=== PATIENT | male | born 2000 | race Asian ===

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

== ENCOUNTER 2020-02-13 16:28 | Inpatient (IN) ==
--- NOTE | 2020-02-13 17:00 | Emergency Department Note ---
Impression & Plan Suicidal ideation, Depression ED Provider Note NAME: LULU TRNA AGE: 19 SEX: M : 2000 ARRIVES VIA: Walk-In INFORMANT: Patient, ED PROVIDER(S): Farhat Segovia MD Chief Complaint: Depression, suicidal ideation HPI: Patient does present with the above complaints. Patient states that he was scheduled to go back to [place] today on a flight from [place] [employer]. The patient lacked some sort of documentation in order to do so. The patient did return here as the patient is a current [employer] student. Patient states he has had decreased sleep and appetite. The patient does state that he has suicidal ideation a prior history of attempts including jumping off a roof, cutting himself, and overdosing. Patient denies taking anything today. Patient denies any fevers chills chest pains or shortness of breath. The patient did have a negative coronavirus test completed today. The patient denies any access to guns or firearms. Patient denies any HI or AVH. ROS: See HPI for pertinent positives and negatives. A total of 10 systems were reviewed and otherwise negative. Past medical history: See below Surgical history: See below Social history: See below Physical Exam: GENERAL: Wearing a mask. Scratching his head. EYE EXAM: Normal conjunctiva. PERRL, no anisocoria and EOM's grossly intact w/o pain. NECK: Supple, no nuchal rigidity, no adenopathy, non-tender. No signs of meningismus. LUNGS: Clear to auscultation. Normal chest wall mechanics. HEART: NSR, no MRG. ABDOMEN: Abdomen soft, non-tender, normo-active bowel sounds, no masses, no rebound or guarding. BACK: No CVA TTP. SKIN: No rashes and no bruising. UPPER EXTREMITIES: Upper extremities are grossly normal. LOWER EXTREMITIES: Grossly normal, no edema. NEURO EXAM: A&O x3, cranial nerves II-XII grossly intact, normal speech, moves all 4 extremities on command w/o issue. Psych: Speaks in a low voice, averts gaze, positive SI, negative HI or AVH. Differential diagnoses: Mood disorder, infection, hypoglycemia, electrolyte a bnormalities, cardiac sources, intracerebral event, toxicologic, trauma, neurologic, as well as other pathologies. Course: Patient was seen and evaluated the bedside. Full history physical exam was performed. MDM: Patient was seen due to concern for suicidal ideation. I did speak with the patient case manager. Patient's blood work is unremarkable and was medically cleared. The patient was reviewed and accepted. Covid test was ordered and was negative. The patient was subsequently mated to inpatient treatment at [facility]. Past Med/Surg History Medical History (Updated 02/13/20 @ 20:58 by Farhat Segovia MD) Depression Social History Smoking Status: Never smoker Preferred Language: Welsh Feels Safe at Home: Yes Allergies Allergies Allergy/AdvReac Type Severity Reaction Status Date / Time No Known Allergies Allergy Verified 02/13/20 17:13 Home Meds Home Medications Medication Instructions Recorded Confirmed No Known Home Medications 02/13/20 02/13/20 Results & Data (ED) Vital Signs Vital Signs - 24 hr 02/13/20 16:44 02/13/20 20:56 Temperature 36.7 C Temperature Source Oral Pulse Rate 89 Pulse Rate [Finger] 85 Pulse Rhythm Regular Pulse Rhythm [Finger] Regular Pulse Strength Normal Respiratory Rate 18 18 Respiratory Effort / Characteristics Non-Labored Spontaneous Respiratory Depth Normal Normal Respiratory Pattern Regular Blood Pressure 140/104 H Blood Pressure [Right Arm] 121/84 Blood Pressure Mean 116 Blood Pressure Mean [Right Arm] 96 Blood Pressure Position Sitting Pulse Oximetry 98 99 Oxygen Delivery Method Room Air Sepsis Recent Fever Within 48 Hours No Sepsis New/Unexplained Change in Mental Status N/A Sepsis Action Taken by Nursing No Action Required Home Medications Current Medication List: was personally reviewed by me Laboratory Data Attestation: I reviewed the patient's lab results. Result diagrams: 02/13/20 17:14 02/13/20 17:14 Lab Results 02/13/20 02/13/20 02/13/20 Range/Units 16:47 16:47 17:14 WBC 7.54 (4.8-10.8) K/uL RBC 5.61 (4.7-6.1) M/uL Hgb 16.1 (14.0-18.0) g/dL Hct 46.7 (42-52) % MCV 83.2 (80-100) fL MCH 28.7 (25-34) pg MCHC 34.5 (32-36) g/dL RDW Std Deviation 37.3 (36.4-46.3) fL RDW Coeff of Remedios 12.5 (11.5-14.5) % Plt Count 263 (130-400) K/uL MPV 10.1 (7.4-10.4) fL Immature Gran % (Auto) 0.3 % Neut % (Auto) 55.5 % Lymph % (Auto) 29.4 % [place] % (Auto) 10.2 % Eos % (Auto) 4.2 % Baso % (Auto) 0.4 % Neut # (Auto) 4.18 (1.4-6.5) K/uL Lymph # (Auto) 2.22 (1.2-3.4) K/uL [place] # (Auto) 0.77 H (0.11-0.59) K/uL Eos # (Auto) 0.32 (0-0.5) K/uL Baso # (Auto) 0.03 (0-0.2) K/uL Immature Gran # (Auto) 0.02 (0.00-0.02) K/uL Sodium (136-145) mmol/L Potassium (3.5-5.1) mmol/L Chloride (98-107) mmol/L Carbon Dioxide (21-32) mmol/L Anion Gap (3-11) BUN (7-18) mg/dl Creatinine (0.6-1.4) mg/dl Est Cr Clr Drug Dosing ml/min Est GFR ( Amer) Est GFR (Non-Af Amer) BUN/Creatinine Ratio (10-20) Glucose (70-99) mg/dl Calcium (8.5-10.1) mg/dl Total Bilirubin (0.2-1) mg/dl AST (15-37) U/L ALT (12-78) U/L Alkaline Phosphatase (45-117) U/L Total Protein (6.4-8.2) gm/dl Albumin (3.4-5.0) gm/dl Globulin (2.5-4.0) gm/dl Albumin/Globulin Ratio (0.9-2) TSH (0.300-4.500) uIu/ml Urine Color Dark Yellow Urine Appearance Clear (Clear) Urine pH 5.5 (4.5-7.5) Ur Specific [place] 1.037 H (1.000-1.030) Urine Protein Trace H (Negative) Urine Glucose (UA) Negative (Negative) Urine Ketones Negative (Negative) Urine Blood Negative (Negative) Urine Nitrite Negative (Negative) Urine Bilirubin Negative (Negative) Urine Urobilinogen Negative (Negative) Ur Leukocyte Esterase Negative (Negative) Urine WBC (Auto) 1-5 (0-5) /hpf Urine RBC (Auto) 0-4 (0-4) /hpf U Hyaline Cast (Auto) 1-5 (0-5) /lpf U Epithel Cells (Auto) 5-10 H (0-5) /lpf Urine Bacteria (Auto) Negative (Negative) Salicylates (2.8-20) mg/dl Urine Opiates Screen Neg (Neg) Ur Methadone, Qual Neg (Neg) Acetaminophen (10-30) ug/ml Urine Barbiturates Neg (Neg) Ur Phencyclidine (PCP) Neg (Neg) U Amphetamin/Meth Scrn Neg (Neg) MDMA (Ecstasy) Screen Neg (Neg) U Benzodiazepines Scrn Neg (Neg) Ur Cocaine Metabolite Neg (Neg) U Marijuana (THC) Screen Neg (Neg) Ethyl Alcohol mg/dL (0-3) mg/dl COVID-19 Eval Order SARS-CoV-2, RNA, NAAT (NEGATIVE) 02/13/20 02/13/20 02/13/20 Range/Units 17:14 17:14 17:14 WBC (4.8-10.8) K/uL RBC (4.7-6.1) M/uL Hgb (14.0-18.0) g/dL Hct (42-52) % MCV (80-100) fL MCH (25-34) pg MCHC (32-36) g/dL RDW Std Deviation (36.4-46.3) fL RDW Coeff of Remedios (11.5-14.5) % Plt Count (130-400) K/uL MPV (7.4-10.4) fL Immature Gran % (Auto) % Neut % (Auto) % Lymph % (Auto) % [place] % (Auto) % Eos % (Auto) % Baso % (Auto) % Neut # (Auto) (1.4-6.5) K/uL Lymph # (Auto) (1.2-3.4) K/uL [place] # (Auto) (0.11-0.59) K/uL Eos # (Auto) (0-0.5) K/uL Baso # (Auto) (0-0.2) K/uL Immature Gran # (Auto) (0.00-0.02) K/uL Sodium 140 (136-145) mmol/L Potassium 3.7 (3.5-5.1) mmol/L Chloride 107 (98-107) mmol/L Carbon Dioxide 27 (21-32) mmol/L Anion Gap 6.0 (3-11) BUN 18 (7-18) mg/dl Creatinine 1.11 (0.6-1.4) mg/dl Est Cr Clr Drug Dosing 101.8 ml/min Est GFR ( Amer) 109.4 Est GFR (Non-Af Amer) 94.4 BUN/Creatinine Ratio 15.9 (10-20) Glucose 86 (70-99) mg/dl Calcium 9.1 (8.5-10.1) mg/dl Total Bilirubin 0.9 (0.2-1) mg/dl AST 15 (15-37) U/L ALT 24 (12-78) U/L Alkaline Phosphatase 81 (45-117) U/L Total Protein 8.0 (6.4-8.2) gm/dl Albumin 4.4 (3.4-5.0) gm/dl Globulin 3.6 (2.5-4.0) gm/dl Albumin/Globulin Ratio 1.2 (0.9-2) TSH 3.770 (0.300-4.500) uIu/ml Urine Color Urine Appearance (Clear) Urine pH (4.5-7.5) Ur Specific [place] (1.000-1.030) Urine Protein (Negative) Urine Glucose (UA) (Negative) Urine Ketones (Negative) Urine Blood (Negative) Urine Nitrite (Negative) Urine Bilirubin (Negative) Urine Urobilinogen (Negative) Ur Leukocyte Esterase (Negative) Urine WBC (Auto) (0-5) /hpf Urine RBC (Auto) (0-4) /hpf U Hyaline Cast (Auto) (0-5) /lpf U Epithel Cells (Auto) (0-5) /lpf Urine Bacteria (Auto) (Negative) Salicylates < 1.7 L (2.8-20) mg/dl Urine Opiates Screen (Neg) Ur Methadone, Qual (Neg) Acetaminophen < 2 L (10-30) ug/ml Urine Barbiturates (Neg) Ur Phencyclidine (PCP) (Neg) U Amphetamin/Meth Scrn (Neg) MDMA (Ecstasy) Screen (Neg) U Benzodiazepines Scrn (Neg) Ur Cocaine Metabolite (Neg) U Marijuana (THC) Screen (Neg) Ethyl Alcohol mg/dL < 3.0 (0-3) mg/dl COVID-19 Eval Order SARS-CoV-2, RNA, NAAT (NEGATIVE) 02/13/20 02/13/20 Range/Units 19:20 19:20 WBC (4.8-10.8) K/uL RBC (4.7-6.1) M/uL Hgb (14.0-18.0) g/dL Hct (42-52) % MCV (80-100) fL MCH (25-34) pg MCHC (32-36) g/dL RDW Std Deviation (36.4-46.3) fL RDW Coeff of Remedios (11.5-14.5) % Plt Count (130-400) K/uL MPV (7.4-10.4) fL Immature Gran % (Auto) % Neut % (Auto) % Lymph % (Auto) % [place] % (Auto) % Eos % (Auto) % Baso % (Auto) % Neut # (Auto) (1.4-6.5) K/uL Lymph # (Auto) (1.2-3.4) K/uL [place] # (Auto) (0.11-0.59) K/uL Eos # (Auto) (0-0.5) K/uL Baso # (Auto) (0-0.2) K/uL Immature Gran # (Auto) (0.00-0.02) K/uL Sodium (136-145) mmol/L Potassium (3.5-5.1) mmol/L Chloride (98-107) mmol/L Carbon Dioxide (21-32) mmol/L Anion Gap (3-11) BUN (7-18) mg/dl Creatinine (0.6-1.4) mg/dl Est Cr Clr Drug Dosing ml/min Est GFR ( Amer) Est GFR (Non-Af Amer) BUN/Creatinine Ratio (10-20) Glucose (70-99) mg/dl Calcium (8.5-10.1) mg/dl Total Bilirubin (0.2-1) mg/dl AST (15-37) U/L ALT (12-78) U/L Alkaline Phosphatase (45-117) U/L Total Protein (6.4-8.2) gm/dl Albumin (3.4-5.0) gm/dl Globulin (2.5-4.0) gm/dl Albumin/Globulin Ratio (0.9-2) TSH (0.300-4.500) uIu/ml Urine Color Urine Appearance (Clear) Urine pH (4.5-7.5) Ur Specific [place] (1.000-1.030) Urine Protein (Negative) Urine Glucose (UA) (Negative) Urine Ketones (Negative) Urine Blood (Negative) Urine Nitrite (Negative) Urine Bilirubin (Negative) Urine Urobilinogen (Negative) Ur Leukocyte Esterase (Negative) Urine WBC (Auto) (0-5) /hpf Urine RBC (Auto) (0-4) /hpf U Hyaline Cast (Auto) (0-5) /lpf U Epithel Cells (Auto) (0-5) /lpf Urine Bacteria (Auto) (Negative) Salicylates (2.8-20) mg/dl Urine Opiates Screen (Neg) Ur Methadone, Qual (Neg) Acetaminophen (10-30) ug/ml Urine Barbiturates (Neg) Ur Phencyclidine (PCP) (Neg) U Amphetamin/Meth Scrn (Neg) MDMA (Ecstasy) Screen (Neg) U Benzodiazepines Scrn (Neg) Ur Cocaine Metabolite (Neg) U Marijuana (THC) Screen (Neg) Ethyl Alcohol mg/dL (0-3) mg/dl COVID-19 Eval Order Covid19 [facility] SARS-CoV-2, RNA, NAAT NEGATIVE (NEGATIVE) Discharge Plan Visit Data Chief Complaint: Mental Health Evaluation Stated Complaint: MENTAL HEALTH EVAL ED Provider: Farhat Segovia Discharge Problem: Suicidal ideation, Depression Forms Stand Alone Forms: [facility], Suicide Prevention Resources Prescriptions Prescriptions: No Action No Known Home Medications RF: 0 Discharge Problem: Depression Qualifiers: Depression Type: unspecified Qualified Code(s): F32.9 - Major depressive disorder, single episode, unspecified
[2020-02-13 17:04] LABS: Appearance Urine Clear (Clear); Bacteria Urine Automated Negative (Negative); Bilirubin Urine Negative (Negative); Blood Urine Negative (Negative); Color Urine Dark Yellow; Glucose Urine UA Negative (Negative); Ketones Urine Negative (Negative); Leukocyte Esterase Urine Negative (Negative); Nitrite Urine Negative (Negative); Protein Urine Trace (Negative); RBC Urine Automated 0-4 /hpf (0-4); Specific Gravity Urine 1.037 (1.000-1.030); Urobilinogen Urine Negative (Negative); pH Urine 5.5 (4.5-7.5)
[2020-02-13 17:24] LABS: Amphetamines+Metham, Urine Neg (Neg); Barbiturates, Urine Neg (Neg); Benzodiazepine, Urine Neg (Neg); Cocaine, Urine Neg (Neg); MDMA (Ecstacy), Urine Neg (Neg); Methadone, Urine Neg (Neg); Opiate, Urine Neg (Neg); Phencyclidine, Urine Neg (Neg)
[2020-02-13 17:26] LABS: Basophils # (auto) 0.03 K/uL (0-0.2); Basophils % (auto) 0.4 %; Eosinophils # (auto) 0.32 K/uL (0-0.5); Eosinophils % (auto) 4.2 %; Hematocrit (blood only) 46.7 % (42-52); Hemoglobin 16.1 g/dL (14.0-18.0); Immature Granulocytes # (auto) 0.02 K/uL (0.00-0.02); Immature Granulocytes % (auto) 0.3 %; Lymphocytes # (auto) 2.22 K/uL (1.2-3.4); Lymphocytes % (auto) 29.4 %; Mean Corpuscular Hemoglobin 28.7 pg (25-34); Mean Corpuscular Hgb Conc 34.5 g/dL (32-36); Mean Corpuscular Volume 83.2 fL (80-100); Mean Platelet Volume 10.1 fL (7.4-10.4); Monocytes # (auto) 0.77 K/uL (0.11-0.59); Monocytes % (auto) 10.2 %; Neutrophils # (auto) 4.18 K/uL (1.4-6.5); Neutrophils % (auto) 55.5 %; Platelet Count 263 K/uL (130-400); RDW Coefficient of Variation 12.5 % (11.5-14.5); RDW Standard Deviation 37.3 fL (36.4-46.3); Red Blood Count 5.61 M/uL (4.7-6.1); White Blood Count 7.54 K/uL (4.8-10.8)
[2020-02-13 17:42] LABS: Albumin Level 4.4 gm/dl (3.4-5.0); BUN Creatinine Ratio 15.9 (10-20); Calcium 9.1 mg/dl (8.5-10.1); Creatinine Clr Calc Pharmacy 101.8 ml/min; Est GFR (African American) 109.4; Est GFR (Non-African American) 94.4; Potassium 3.7 mmol/L (3.5-5.1)
[2020-02-13 17:52] LABS: Albumin Globulin Ratio 1.2 (0.9-2); Bilirubin,Total 0.9 mg/dl (0.2-1); Globulin 3.6 gm/dl (2.5-4.0); Thyroid Stimulating Hormone 3.77 uIu/ml (0.300-4.500)
[2020-02-13 17:57] LABS: Acetaminophen < 2 ug/ml (10-30); Salicylate < 1.7 mg/dl (2.8-20)
[2020-02-13] MEDS ORDERED: SODIUM CHLORIDE 0.65% NA SOLN 45 ML (OCEAN) PRN (20:49)
[2020-02-13] MEDS ORDERED: MAGNESIUM HYDROXIDE SUSP 30 ML UDC PO PRN (20:49)
[2020-02-13] MEDS ORDERED: ACETAMINOPHEN 325 MG TAB PO PRN (20:49)
[2020-02-13] MEDS ORDERED: ALUMINUM/MAGNESIUM SUSP 30 ML UDC PO PRN (20:49)
[2020-02-13] MEDS ORDERED: hydrOXYzine HCl 25 MG TAB PO PRN ×2 (20:49)
[2020-02-13] MEDS ORDERED: BISMUTH SUBSALICYLATE LIQD 236 ML PO PRN (20:49)
[2020-02-13 20:57] VITALS: O2SAT 99
[2020-02-13] MEDS ORDERED: INFLUENZA VIRUS QUAD VACCINE 0.5 ML SYR IM ONE (22:24)
[2020-02-13] MEDS ORDERED: INFLUENZA ADMINISTRATION CHARGE ONE (22:24)
[2020-02-14] MEDS: OXYMETAZOLINE INH PRN (07:28)
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
[2020-02-14] MEDS: CITALOPRAM 20 MG TAB PO SCH (11:35)
[2020-02-15] MEDS: CITALOPRAM 20 MG TAB PO SCH (08:34)
[2020-02-15] MEDS: OXYMETAZOLINE INH PRN ×2 (08:34→16:09)
--- NOTE | 2020-02-15 13:22 | Psychiatric Progress Note ---
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 He is angry about the barriers he has encountered, feels that things are unfair, and in that context is hopeless and suicidal. Patient's behavior continues to be consistent with narci ssistic personality disorder, and we will encourage patient to focus on development of healthy and effective coping skills to deal with frustration. Pt agreed to a family meeting with his mother, who lives in [place], which will occur tomorrow morning. Inpatient treatment is medically necessary due to the severity of symptoms and risk for suicide if discharged. (1) Suicidal ideation: 02/13 - Continue inpatient treatment on locked unit, suicide checks for safety, encourage group attendance and participation. -Family meeting w/ parents in [place], and coordination with school/[employer] [facility] [employer] [facility]. -Patient is now stating he cannot go home until the travel restrictions are lifted, which could be months or longer. This does not appear to be based in reality, and he will need coordination with his outpatient supports to clarify his options moving forward. 02/14 - Pt does not report active SI, but after a significant period of hesitancy, the patient states he feels "broken" and continues to feel that "life is overrated" (2) Depression: 02/13 - Resume citalopram 20mg daily, as previously effective and well tolerated. Discussed with him that given multiple episodes of depression and history of multiple suicide attempts, that guidelines are for continuous antidepressant treatment, and that greater consideration should be given in the future prior to stopping his medications once symptoms have remitted. - Reviewed diagnoses and treatment recommendations, including antidepressant medication and therapy. Care coordinated with Dr. Kirby and will also coordinate with therapist at [facility]. If he remains in [place], he will require ongoing outpatient treatment. 02/14 - continue citalopram at 20mg - patient reports nausea today, unsure if related to medication or anxiety. Can continue titration as tolerated and recommend ongoing conversations to encourage medication compliance even after symptoms improve - Pt reports ongoing depressed mood and difficulty processing events leading to admission - prefers at this time to focus more on distraction than on directly discussing stressors - Family meeting with mother scheduled for tomorrow - Will need to reschedule aftercare appointments (3) Narcissistic personality disorder: 02/13 - Outpatient diagnosis, will get therapy records. On exam today, sense of entitlement is noted, as well as lack of empathy. -Difficulty managing frustration, will focus on distress tolerance and healthy coping skills here. 02/14 - Ongoing observations as stated above. Evidence to support this diagnosis today includes: acute frustration related to mother securing another plane ticket, claiming he was frustrated with her for doing this as he now has no intention of returning home. - Hopefully we can discuss this communication concern and ways to assist with low frustration-tolerance during family meeting scheduled with mother for tomorrow. Risk Factors Assessment Male: Yes : No Do You Have Access To A Gun?: No Health Problems: No Mental Health Diagnoses: Yes Substance Use Disorders: No Previous Attempt: Yes Family History of Suicide: No Previous Psychiatric Hospitalization: Yes Hopelessness: Yes Smoker: No Protective Factors Assessment Rastafarian Beliefs: No : No Responsible for Young Children: No Employed: No Stable Relationships: Yes Supportive Family: Yes Good Rapport with Provider: Yes Interval History Identifying Information LULU HE is a 19-year-old M [employer] student from [place] who has a history of depression and was admitted on 02/13/20 20:49 on a 201 voluntary commitment for depression and suicidality. Chief Complaint "Good. Pretty alright." Review of Systems Notes Constitutional: vague report of "physical stuff" when he feels overwhelmed, unable to provide any additional insight Cardiovascular: denied Respiratory: denied Gastrointestinal: reports nausea today Neurological: denied Psychiatric: denies symptoms other than stated above Total of at least 10 systems reviewed, pertinent positives as above and in HPI. Sleep Information Total Hours of Sleep: 7.5 Sleep Comments: pt on q-15 minute checks Meal Information Percent Meal Consumed - Breakfast: 100 Percent Meal Consumed - Lunch: 100 Percent Meal Consumed - Dinner: 100 Subjective Subjective Patient was seen & assessed and interval progress reviewed with nursing and social work. Staff report the patient has been adjusting to the unit, initially more withdrawn. Pt did appear somewhat overwhelmed per reports. Pt was seen today to assess progress since admission. Pt states he is feeling "good. Pretty alright." He was pulled away from activity group to complete interview, where he was engaging with peers in a few games. He becomes noticeably more withdrawn when pulled into a 1:1 conversation. Pt admits that he has been "dealing with a lot of things." He shares that he was not able to return to [place] and that this change in plans was very frustrating for him. He also states that he spoke with his mother today and learned that she had purchased a new plane ticket on his behalf. Pt states that he is very frustrated about this, telling this provider he did not want to discuss it as it causes him to be overwhelmed. This provider did press a bit harder to learn why this was meghannt's reaction. Pt shared that due to him being unable to board his first flight, he had already made up his mind that he was not returning home. He states he now feels like his plans are being changed for him again, and he finds this frustrating. Pt did agree to a family meeting with his mother tomorrow at 10:00. He states that he is too anxious to discuss any topics he plans to bring up. He reports that anxiety causes "physical reactions" to happen, but reports only physical complaint is nausea. He is unsure if this is related to restarting medications or related to anxiety itself. Pt did not endorse active SI, but does state he is feeling "broken" and continues to feel that "life is overrated." Pt is unable to contract for safety outside of the hospital at this time. He states his present goal has been to focus on distraction, though this may also be efforts to avoid dealing with stressors. Physical Exam Psychiatric Orientation: alert, oriented x 3 and + guarded (only superficially cooperative, deflecting most questions asked of him) Apperance: appropriately dressed (neatly dressed in khaki pants and a sweater with collared shirt underneath ), appropriately groomed and appeared stated age Eye Contact: + poor eye contact (very few moments of direct eye contact ) Motor Behavior: + psychomotor agitation (appearing anxious, frequently fidgeting or moving hand through hair) Speech: normal rate/rhythm/volume of speech Affect: + anxious affect Mood: + depressed mood and + anxious mood Thought Process: goal directed thought process Thought Content: + cognitive distortions and + hopelessness Suicidal Thoughts: + reports suicidal thoughts (reports still feeling "life is over-rated") admits he is unable to contract for safety outside of the hospital setting at this time Homicidal Thoughts: denies homicidal thoughts Hallucinations: no auditory hallucinations and no visual hallucinations Cognition: attention grossly intact and language grossly intact Estimated Intelligence: consistent with education level Insight: + poor insight Judgement: + poor judgement Vital Signs (Past 24 Hours) Last Vital Signs Temp 36.6 C 02/15/20 06:46 Pulse 79 02/15/20 06:46 Resp 16 02/15/20 06:46 BP 121/78 02/15/20 06:46 Pulse Ox 99 02/13/20 20:56 Results & Data ([facility]) Current Inpatient Medications Current Inpatient Medications: Current Inpatient Medications Acetaminophen (Acetaminophen 325 Mg Tab) 650 mg PO Q4H PRN PRN Reason: Headache or Minor Fever Stop: 03/14/20 20:48 Al Hydrox/Mg Hydrox/Simethicone (Aluminum/Magnesium Susp 30 Ml Udc) 30 ml PO Q4H PRN PRN Reason: GI Upset Stop: 03/14/20 20:48 Bismuth Subsalicylate (Bismuth Subsalicylate Liqd 236 Ml) 15 ml PO PRN PRN PRN Reason: Loose Stool Stop: 03/14/20 20:48 Citalopram Hydrobromide (Citalopram 20 Mg Tab) 20 mg PO QAM ARELY Stop: 03/15/20 10:59 Last Admin: 02/15/20 08:34 Dose: 20 mg Documented by: Hydroxyzine HCl (Hydroxyzine Hcl 25 Mg Tab) 50 mg PO HSZ PRN PRN Reason: Insomnia Stop: 03/14/20 20:48 Hydroxyzine HCl (Hydroxyzine Hcl 25 Mg Tab) 25 mg PO Q4H PRN PRN Reason: Anxiety Stop: 03/14/20 20:48 Magnesium Hydroxide (Magnesium Hydroxide Susp 30 Ml Udc) 30 ml PO DAILY PRN PRN Reason: Constipation Stop: 03/14/20 20:48 Oxymetazoline: Non- Formulary Patient's Own Med 1 ea INH HS PRN PRN Reason: Allergy Symptoms Stop: 03/15/20 21:59 Last Admin: 02/15/20 08:34 Dose: 1 sprays Documented by: Sodium Chloride (Sodium Chloride 0.65% Na Soln 45 Ml ([place])) 1 - 2 sprays NA PRN PRN PRN Reason: Nasal Dryness/Congestion Stop: 03/14/20 20:48 Last Admin: 02/15/20 10:10 Dose: 1 sprays Documented by: Mental Health & Subst Abuse Tx Psychiatrist [facility]ist[facility] Post Discharge Appointments Primary Care Physician Name Of Family Doctor: Tamiko (1) Depression Depression Type: unspecified Qualified Code(s): F32.9 - Major depressive disorder, single episode, unspecified
[2020-02-16] MEDS: CITALOPRAM 20 MG TAB PO SCH (08:56)
[2020-02-16] MEDS ORDERED: OXYMETAZOLINE 0.05% INH PRN (11:43)
--- NOTE | 2020-02-16 13:23 | Psychiatric Progress Note ---
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 He is angry about the barriers he has encountered, feels that things are unfair, and in that context is hopeless and suicidal. Patient's behavior continues to be consistent with narci ssistic personality disorder, and we will encourage patient to focus on development of healthy and effective coping skills to deal with frustration. Pt agreed to a family meeting with his mother, who lives in [place]. Mother was supportive, but patient continued to display difficulty tolerating frustration. Inpatient treatment is medically necessary due to the severity of symptoms and risk for suicide if discharged. (1) Suicidal ideation: 02/13 - Continue inpatient treatment on locked unit, suicide checks for safety, encourage group attendance and participation. -Family meeting w/ parents in [place], and coordination with school/[employer] [facility] [employer] [facility]. -Patient is now stating he cannot go home until the travel restrictions are lifted, which could be months or longer. This does not appear to be based in reality, and he will need coordination with his outpatient supports to clarify his options moving forward. 02/14 - Pt does not report active SI, but after a significant period of hesitancy, the patient states he feels "broken" and continues to feel that "life is overrated" 02/15 - Denied SI today, but reports feeling overwhelmed with conversations about school (2) Depression: 02/13 - Resume citalopram 20mg daily, as previously effective and well tolerated. Discussed with him that given multiple episodes of depression and history of multiple suicide attempts, that guidelines are for continuous antidepressant treatment, and that greater consideration should be given in the future prior to stopping his medications once symptoms have remitted. - Reviewed diagnoses and treatment recommendations, including antidepressant medication and therapy. Care coordinated with Dr. Kirby and will also coordinate with therapist at [facility]. If he remains in [place], he will require ongoing outpatient treatment. 02/14 - continue citalopram at 20mg - patient reports nausea today, unsure if related to medication or anxiety. Can continue titration as tolerated and recommend ongoing conversations to encourage medication compliance even after symptoms improve - Pt reports ongoing depressed mood and difficulty processing events leading to admission - prefers at this time to focus more on distraction than on directly discussing stressors - Family meeting with mother scheduled for tomorrow - Will need to reschedule aftercare appointments 02/15 - Will titrate citalopram to 30mg tomorrow morning - continued depression and increased situational anxiety related to conversations about whether or not to withdraw from school - Family meeting with mother today, pt reportedly had several outbursts - mother was supportive overall - Will need to encourage patient to actually process this decision, as his preference is to avoid difficulty decisions. He was more open to discussing this today, which is positive. (3) Narcissistic personality disorder: 02/13 - Outpatient diagnosis, will get therapy records. On exam today, sense of entitlement is noted, as well as lack of empathy. -Difficulty managing frustration, will focus on distress tolerance and healthy coping skills here. 02/14 - Ongoing observations as stated above. Evidence to support this diagnosis today includes: acute frustration related to mother securing another plane ticket, claiming he was frustrated with her for doing this as he now has no intention of returning home. - Hopefully we can discuss this communication concern and ways to assist with low frustration-tolerance during family meeting scheduled with mother for tomorrow. (4) Nasal congestion due to prolonged use of decongestants: 02/15 - Pt reports concern related to nasal congestion - use of oxymetazoline has been limited to BID, but patient admits he has been taking the medication multiple times a day for "a long time" - We discussed that this is likely rebound congestion from prolonged oxymetazoline use. Educated on this process and that discontinuation of oxymetazoline is recommended but will likely be an uncomfortable process - Pt agreed to discontinuation of oxymetazoline, will order fluticasone 1 spray each nostril BID for residual symptoms. Risk Factors Assessment Male: Yes : No Do You Have Access To A Gun?: No Health Problems: No Mental Health Diagnoses: Yes Substance Use Disorders: No Previous Attempt: Yes Family History of Suicide: No Previous Psychiatric Hospitalization: Yes Hopelessness: Yes Smoker: No Protective Factors Assessment Congregational Beliefs: No : No Responsible for Young Children: No Employed: No Stable Relationships: Yes Supportive Family: Yes Good Rapport with Provider: Yes Interval History Identifying Information LULU HE is a 19-year-old M [employer] student from [place] who has a history of depression and was admitted on 02/13/20 20:49 on a 201 voluntary commitment for depression and suicidality. Chief Complaint "Um, I'm alright." Review of Systems Notes Constitutional: denied Cardiovascular: denied Respiratory: denied Gastrointestinal: denied Neurological: denied Psychiatric: denies symptoms other than stated above Total of at least 10 systems reviewed, pertinent positives as above and in HPI. Sleep Information Total Hours of Sleep: 4 Sleep Comments: pt on q-15 minute checks Meal Information Percent Meal Consumed - Breakfast: 100 Percent Meal Consumed - Lunch: 100 Percent Meal Consumed - Dinner: 100 Subjective Subjective Patient was seen & assessed and interval progress reviewed with treatment team. Staff report the patient has been participating in group programming. He did report to staff that he was having some guilt for his behavior at the airport and did state that there are times where he feels like a burden on his parents. Pt participated in a family meeting with his mother via phone. It was reported that mother attempted to be supportive, but patient had several emotional outbursts during the conversation. Pt was seen today after the meeting to assess progress since admission. Pt initially states he is "alright", but then shares "there's just too many questions." Pt states he is referring to the meeting with his mother, where he was ultimately given information about potentially withdrawing from school. Pt states he is not ready to think about this. Pt was reminded that while it is appropriate to take some time to weigh out his options, it is also important that he not avoid making this decision - or a decision may be made for him if poor academic performance continues. 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 We discussed the demands of his [employer] degree - feeling like his deadlines prevent him from putting in the time he desires into his projects and "I have to try really hard to keep my pace. The littlest thing can mess up my tempo and make it hard to bounce back." Pt is open to titrating his citalopram further. He denied SI today, but does admit he felt overwhelmed after his family meeting and is still feeling overwhelmed about the decisions ahead. He denied other needs or concerns at this time. Physical Exam Psychiatric Orientation: alert, oriented x 3 and cooperative Apperance: appropriately dressed, appropriately groomed and appeared stated age Eye Contact: good eye contact Motor Behavior: steady gait and station and no abnormal motor movements Speech: normal rate/rhythm/volume of speech Affect: + depressed affect and + anxious affect Mood: + depressed mood and + anxious mood Thought Process: goal directed thought process and clear/coherent thought process Thought Content: + cognitive distortions and + hopelessness (intermittently ) Suicidal Thoughts: denies suicidal thoughts and denies suicidal intent Homicidal Thoughts: denies homicidal thoughts Hallucinations: no auditory hallucinations and no visual hallucinations Cognition: attention grossly intact and language grossly intact Estimated Intelligence: consistent with education level Insight: + poor insight (though seems to slowly be improving at times) Judgement: + poor judgement Vital Signs (Past 24 Hours) Last Vital Signs Temp 36.5 C 02/16/20 06:36 Pulse 80 02/16/20 06:37 Resp 16 02/16/20 06:36 BP 129/85 02/16/20 06:37 Pulse Ox 99 02/13/20 20:56 Results & Data ([facility]) Current Inpatient Medications Current Inpatient Medications: Current Inpatient Medications Acetaminophen (Acetaminophen 325 Mg Tab) 650 mg PO Q4H PRN PRN Reason: Headache or Minor Fever Stop: 03/14/20 20:48 Al Hydrox/Mg Hydrox/Simethicone (Aluminum/Magnesium Susp 30 Ml Udc) 30 ml PO Q4H PRN PRN Reason: GI Upset Stop: 03/14/20 20:48 Bismuth Subsalicylate (Bismuth Subsalicylate Liqd 236 Ml) 15 ml PO PRN PRN PRN Reason: Loose Stool Stop: 03/14/20 20:48 Citalopram Hydrobromide (Citalopram 20 Mg Tab) 20 mg PO QAM ARELY Stop: 03/15/20 10:59 Last Admin: 02/16/20 08:56 Dose: 20 mg Documented by: Hydroxyzine HCl (Hydroxyzine Hcl 25 Mg Tab) 50 mg PO HSZ PRN PRN Reason: Insomnia Stop: 03/14/20 20:48 Hydroxyzine HCl (Hydroxyzine Hcl 25 Mg Tab) 25 mg PO Q4H PRN PRN Reason: Anxiety Stop: 03/14/20 20:48 Last Admin: 02/16/20 03:51 Dose: 25 mg Documented by: Magnesium Hydroxide (Magnesium Hydroxide Susp 30 Ml Udc) 30 ml PO DAILY PRN PRN Reason: Constipation Stop: 03/14/20 20:48 Oxymetazoline 0.05%: Non-Formulary Patient's Own Med 2 ea INH Q12 PRN PRN Reason: Allergy Symptoms Stop: 03/14/20 23:28 Sodium Chloride (Sodium Chloride 0.65% Na Soln 45 Ml ([place])) 1 - 2 sprays NA PRN PRN PRN Reason: Nasal Dryness/Congestion Stop: 03/14/20 20:48 Last Admin: 02/15/20 10:10 Dose: 1 sprays Documented by: Mental Health & Subst Abuse Tx Psychiatrist Name of Psychiatrist: Dr. JacobsJaved [facility] Psychiatrist's Date of Appointment with Psychiatrist: 02/24/20 Time of Appointment with Psychiatrist: 11:00am Psychiatric Appointment Comment: [place] Marva Higgin[place] Therapist [place] of Therapist: [place] [facility] Therapist's Date of Therapist Appointment: 02/22/20 Time of Therapist Appointment: 6:00pm Therapy Appointment Comment: [place] Marva Higgin[place]am [place] Post Discharge Appointments Primary Care Physician Name Of Family Doctor: EDELMIRA (1) Depression Depression Type: unspecified Qualified Code(s): F32.9 - Major depressive disorder, single episode, unspecified
[2020-02-16] MEDS: FLUTICASONE PROPIONATE NA SPR 16 GM BTL NAE SCH (21:12)
[2020-02-17] MEDS: FLUTICASONE PROPIONATE NA SPR 16 GM BTL NAE SCH ×2 (08:17→22:11)
[2020-02-17] MEDS: CITALOPRAM 20 MG TAB PO SCH (08:17)
--- NOTE | 2020-02-17 14:03 | Psychiatric Progress Note ---
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 He is angry about the barriers he has encountered, feels that things are unfair, and in that context is hopeless and suicidal. Patient's behavior continues to be consistent with narci ssistic personality disorder, and we will encourage patient to focus on development of healthy and effective coping skills to deal with frustration. Pt agreed to a family meeting with his mother, who lives in [place]. Mother was supportive, but patient continued to display difficulty tolerating frustration. Inpatient treatment is medically necessary due to the severity of symptoms and risk for suicide if discharged. (1) Suicidal ideation: 02/13 - Continue inpatient treatment on locked unit, suicide checks for safety, encourage group attendance and participation. -Family meeting w/ parents in [place], and coordination with school/[employer] [facility]. -Patient is now stating he cannot go home until the travel restrictions are lifted, which could be months or longer. This does not appear to be based in reality, and he will need coordination with his outpatient supports to clarify his options moving forward. 02/14 - Pt does not report active SI, but after a significant period of hesitancy, the patient states he feels "broken" and continues to feel that "life is overrated" 02/15 - 02/16 - Denied SI, but reports feeling overwhelmed with conversations about school (2) Depression: 02/13 - Resume citalopram 20mg daily, as previously effective and well tolerated. Discussed with him that given multiple episodes of depression and history of multiple suicide attempts, that guidelines are for continuous antidepressant treatment, and that greater consideration should be given in the future prior to stopping his medications once symptoms have remitted. - Reviewed diagnoses and treatment recommendations, including antidepressant medication and therapy. Care coordinated with Dr. Kirby and will also coordinate with therapist at [facility]. If he remains in [place], he will require ongoing outpatient treatment. 02/14 - continue citalopram at 20mg - patient reports nausea today, unsure if related to medication or anxiety. Can continue titration as tolerated and recommend ongoing conversations to encourage medication compliance even after symptoms improve - Pt reports ongoing depressed mood and difficulty processing events leading to admission - prefers at this time to focus more on distraction than on directly discussing stressors - Family meeting with mother scheduled for tomorrow - Will need to reschedule aftercare appointments 02/15 - Will titrate citalopram to 30mg tomorrow morning - continued depression and increased situational anxiety related to conversations about whether or not to withdraw from school - Family meeting with mother today, pt reportedly had several outbursts - mother was supportive overall - Will need to encourage patient to actually process this decision, as his preference is to avoid difficulty decisions. He was more open to discussing this today, which is positive. 02/16 - Continue as above - pt reports feeling "foggy" and states his "brain was slowed" today, but agreeable with continuing 30mg dose - Pt continues to avoid processing through decision regarding school - Aftercare appointments scheduled (3) Narcissistic personality disorder: 02/13 - Outpatient diagnosis, will get therapy records. On exam today, sense of entitlement is noted, as well as lack of empathy. -Difficulty managing frustration, will focus on distress tolerance and healthy coping skills here. 02/14 - Ongoing observations as stated above. Evidence to support this diagnosis today includes: acute frustration related to mother securing another plane ticket, claiming he was frustrated with her for doing this as he now has no intention of returning home. - Hopefully we can discuss this communication concern and ways to assist with low frustration-tolerance during family meeting scheduled with mother for tomorrow. (4) Nasal congestion due to prolonged use of decongestants: 02/15 - Pt reports concern related to nasal congestion - use of oxymetazoline has been limited to BID, but patient admits he has been taking the medication multiple times a day for "a long time" - We discussed that this is likely rebound congestion from prolonged oxymetazoline use. Educated on this process and that discontinuation of oxymetazoline is recommended but will likely be an uncomfortable process - Pt agreed to discontinuation of oxymetazoline, will order fluticasone 1 spray each nostril BID for residual symptoms. Risk Factors Assessment Male: Yes : No Do You Have Access To A Gun?: No Health Problems: No Mental Health Diagnoses: Yes Substance Use Disorders: No Previous Attempt: Yes Family History of Suicide: No Previous Psychiatric Hospitalization: Yes Hopelessness: Yes Smoker: No Protective Factors Assessment Denominational Beliefs: No : No Responsible for Young Children: No Employed: No Stable Relationships: Yes Supportive Family: Yes Good Rapport with Provider: Yes Interval History Identifying Information LULU HE is a 19-year-old M [employer] student from [place] who has a history of depression and was admitted on 02/13/20 20:49 on a 201 voluntary commitment for depression and suicidality. Chief Complaint "Um, well...yeah. I'm just getting used to the new medication dose." Review of Systems Notes Constitutional: reports feeling "foggy" and "light" this morning Cardiovascular: denied Respiratory: denied Gastrointestinal: denied Neurological: denied Psychiatric: denies symptoms other than stated above Total of at least 10 systems reviewed, pertinent positives as above and in HPI. Sleep Information Total Hours of Sleep: 7 Sleep Comments: pt on q-15 minute checks Meal Information Percent Meal Consumed - Breakfast: 100 Percent Meal Consumed - Lunch: 100 Percent Meal Consumed - Dinner: 100 Subjective Subjective Patient was seen & assessed and interval progress reviewed with nursing and social work. Staff report the patient has been attending group programming. Although he had several outbursts during his family meeting yesterday, patient reported a positive perception of the meeting. He continues to be ambivalent about his discharge plans. Pt was seen today to assess progress since admission. Pt states he is "zoning" out most of the day, feeling it is related to the new dose of citalopram. Pt reports he is feeling "foggy" and "light." He does agree to continue with this current dose. Pt states that the "spinning" of his mind has "slowed down", and feels this is a neutral thing. His thoughts have not been as fast, but he states he is also feeling a bit less anxious t alvino. Pt continues to states "I don't want to think about it, too stressful." Pt was reminded that, although it may be easier to avoid making this decision, these stressors require his attention and we need to work toward a decision. Pt was encouraged to process his thoughts with a counselor this evening. He denied SI and began laughing, stating "No, I couldn't think of that, I spent the whole day zoning". He denied other needs or concerns at this time. Physical Exam Psychiatric Orientation: alert, oriented x 3 and + guarded (superficially cooperative ) Apperance: appropriately dressed, appropriately groomed and appeared stated age Eye Contact: + poor eye contact Motor Behavior: + psychomotor agitation (fidgets and runs hands through hair when he becomes anxious) Speech: normal rate/rhythm/volume of speech Affect: + anxious affect Mood: + anxious mood Thought Process: goal directed thought process and + concrete thought process Thought Content: reality based without delusions Suicidal Thoughts: denies suicidal thoughts ("No, I couldn't think of that, I spent the whole day zoning") Homicidal Thoughts: denies homicidal thoughts Hallucinations: no auditory hallucinations and no visual hallucinations Cognition: attention grossly intact and language grossly intact Estimated Intelligence: consistent with education level Insight: + limited insight Judgement: + limited judgement Vital Signs (Past 24 Hours) Last Vital Signs Temp 36.5 C 02/17/20 06:45 Pulse 82 02/17/20 06:45 Resp 16 02/17/20 06:45 BP 116/74 02/17/20 06:45 Pulse Ox 99 02/13/20 20:56 Results & Data ([facility]) Current Inpatient Medications Current Inpatient Medications: Current Inpatient Medications Acetaminophen (Acetaminophen 325 Mg Tab) 650 mg PO Q4H PRN PRN Reason: Headache or Minor Fever Stop: 03/14/20 20:48 Al Hydrox/Mg Hydrox/Simethicone (Aluminum/Magnesium Susp 30 Ml Udc) 30 ml PO Q4H PRN PRN Reason: GI Upset Stop: 03/14/20 20:48 Bismuth Subsalicylate (Bismuth Subsalicylate Liqd 236 Ml) 15 ml PO PRN PRN PRN Reason: Loose Stool Stop: 03/14/20 20:48 Citalopram Hydrobromide (Citalopram 20 Mg Tab) 30 mg PO QAM ARELY Stop: 03/18/20 08:59 Last Admin: 02/17/20 08:17 Dose: 30 mg Documented by: Fluticasone Propionate (Fluticasone Propionate Na Spr 16 Gm Btl) 1 sprays DORITA BID ARELY Stop: 03/17/20 20:59 Last Admin: 11/12/20 08:17 Dose: 1 sprays Documented by: Hydroxyzine HCl (Hydroxyzine Hcl 25 Mg Tab) 50 mg PO HSZ PRN PRN Reason: Insomnia Stop: 03/14/20 20:48 Hydroxyzine HCl (Hydroxyzine Hcl 25 Mg Tab) 25 mg PO Q4H PRN PRN Reason: Anxiety Stop: 03/14/20 20:48 Last Admin: 02/16/20 03:51 Dose: 25 mg Documented by: Magnesium Hydroxide (Magnesium Hydroxide Susp 30 Ml Udc) 30 ml PO DAILY PRN PRN Reason: Constipation Stop: 03/14/20 20:48 Sodium Chloride (Sodium Chloride 0.65% Na Soln 45 Ml ([place])) 1 - 2 sprays NA PRN PRN PRN Reason: Nasal Dryness/Congestion Stop: 03/14/20 20:48 Last Admin: 02/15/20 10:10 Dose: 1 sprays Documented by: Mental Health & Subst Abuse Tx Psychiatrist Name of Psychiatrist: Dr. [facility] Psychiatrist's Date of Appointment with Psychiatrist: 02/24/20 Time of Appointment with Psychiatrist: 11:00am Psychiatric Appointment Comment: [address], [place] Therapist Name of Therapist: [facility] Therapist's Date of Therapist Appointment: 02/22/20 Time of Therapist Appointment: 6:00pm Therapy Appointment Comment: [address], [place] Post Discharge Appointments Primary Care Physician [facility] (1) Depression Depression Type: unspecified Qualified Code(s): F32.9 - Major depressive disorder, single episode, unspecified
[2020-02-18] MEDS: CITALOPRAM 20 MG TAB PO SCH (08:48)
[2020-02-18] MEDS: FLUTICASONE PROPIONATE NA SPR 16 GM BTL NAE SCH ×2 (08:49→21:56)
--- NOTE | 2020-02-18 09:38 | Psychiatric Progress Note ---
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 He is angry about the barriers he has encountered, feels that things are unfair, and in that context is hopeless and suicidal. Patient's behavior continues to be consistent with narci ssistic personality disorder, and we will encourage patient to focus on development of healthy and effective coping skills to deal with frustration. Pt agreed to a family meeting with his mother, who lives in [place]. Mother was supportive, but patient continued to display difficulty tolerating frustration. Inpatient treatment is medically necessary due to the severity of symptoms and risk for suicide if discharged. (1) Suicidal ideation: 02/13 - Continue inpatient treatment on locked unit, suicide checks for safety, encourage group attendance and participation. -Family meeting w/ parents in [place], and coordination with school/[employer] [facility] [employer] [facility]. -Patient is now stating he cannot go home until the travel restrictions are lifted, which could be months or longer. This does not appear to be based in reality, and he will need coordination with his outpatient supports to clarify his options moving forward. 02/14 - Pt does not report active SI, but after a significant period of hesitancy, the patient states he feels "broken" and continues to feel that "life is overrated" 02/15 - 02/16 - Denied SI, but reports feeling overwhelmed with conversations about school 02/17 - Pt offers somewhat cryptic denial of SI. He denies active thoughts, but also states "because I can't afford to be in the hospital again." (2) Depression: 02/13 - Resume citalopram 20mg daily, as previously effective and well tolerated. Discussed with him that given multiple episodes of depression and history of multiple suicide attempts, that guidelines are for continuous antidepressant treatment, and that greater consideration should be given in the future prior to stopping his medications once symptoms have remitted. - Reviewed diagnoses and treatment recommendations, including antidepressant medication and therapy. Care coordinated with Dr. Kirby and will also coordinate with therapist at [facility]. If he remains in [place], he will require ongoing outpatient treatment. 02/14 - continue citalopram at 20mg - patient reports nausea today, unsure if related to medication or anxiety. Can continue titration as tolerated and recommend ongoing conversations to encourage medication compliance even after symptoms improve - Pt reports ongoing depressed mood and difficulty processing events leading to admission - prefers at this time to focus more on distraction than on directly discussing stressors - Family meeting with mother scheduled for tomorrow - Will need to reschedule aftercare appointments 02/15 - Will titrate citalopram to 30mg tomorrow morning - continued depression and increased situational anxiety related to conversations about whether or not to withdraw from school - Family meeting with mother today, pt reportedly had several outbursts - mother was supportive overall - Will need to encourage patient to actually process this decision, as his preference is to avoid difficulty decisions. He was more open to discussing this today, which is positive. 02/16 - Continue as above - pt reports feeling "foggy" and states his "brain was slowed" today, but agreeable with continuing 30mg dose - Pt continues to avoid processing through decision regarding school - Aftercare appointments scheduled 02/17 - Continue citalopram 30mg daily. - Pt does seem to have put more effort into not only figuring out his options related to continuing in his program, but also into coping strategies to assist with disappointment and frustration. - Aftercare appointments in place. (3) Narcissistic personality disorder: 02/13 - Outpatient diagnosis, will get therapy records. On exam today, sense of entitlement is noted, as well as lack of empathy. -Difficulty managing frustration, will focus on distress tolerance and healthy coping skills here. 02/14 - Ongoing observations as stated above. Evidence to support this diagnosis today includes: acute frustration related to mother securing another plane ticket, claiming he was frustrated with her for doing this as he now has no intention of returning home. - Hopefully we can discuss this communication concern and ways to assist with low frustration-tolerance during family meeting scheduled with mother for tomorrow. (4) Nasal congestion due to prolonged use of decongestants: 02/15 - Pt reports concern related to nasal congestion - use of oxymetazoline has been limited to BID, but patient admits he has been taking the medication multiple times a day for "a long time" - We discussed that this is likely rebound congestion from prolonged oxymetazoline use. Educated on this process and that discontinuation of oxymetazoline is recommended but will likely be an uncomfortable process - Pt agreed to discontinuation of oxymetazoline, will order fluticasone 1 spray each nostril BID for residual symptoms. Risk Factors Assessment Male: Yes : No Do You Have Access To A Gun?: No Health Problems: No Mental Health Diagnoses: Yes Substance Use Disorders: No Previous Attempt: Yes Family History of Suicide: No Previous Psychiatric Hospitalization: Yes Hopelessness: Yes Smoker: No Protective Factors Assessment Synagogue Beliefs: No : No Responsible for Young Children: No Employed: No Stable Relationships: Yes Supportive Family: Yes Good Rapport with Provider: Yes Interval History Identifying Information LULU TRAN is a 19-year-old M [employer] student from [place] who has a history of depression and was admitted on 02/13/20 20:49 on a 201 voluntary commitment for depression and suicidality. Chief Complaint "Everything is alright still...well...I guess, with decisions I'm still pretty hesitant." Review of Systems Notes Constitutional: denied, reports feeling less "zoned out" today Cardiovascular: denied Respiratory: denied Gastrointestinal: denied Neurological: denied Psychiatric: denies symptoms other than stated above Total of at least 10 systems reviewed, pertinent positives as above and in HPI. Sleep Information Total Hours of Sleep: 6.5 Sleep Comments: pt on q-15 minute checks Meal Information Percent Meal Consumed - Breakfast: 100 Percent Meal Consumed - Lunch: 100 Percent Meal Consumed - Dinner: 100 Subjective Subjective Patient was seen & assessed and interval progress reviewed with treatment team. Staff report the patient has been participating in group and recreational programming. He rated his mood a 3/10 and "chill" last evening. Pt reported feeling as though he is learning to cope with uncertainties. Pt was seen today to assess progress since admission. Pt states "everything is alright", but then immediately reported "I guess, with decisions I'm still pretty hesitant." Somewhat surprisingly, the patient then verbalized his desire to attempt to enroll in classes for next semester and "if I can't get into 3 out of 5 of my classes then I will take a break. Spend some time here until policies lighten and I can spend time in [place]." Pt does feel that having "a plan B" is a positive thing for him, as he believes he will be less likely to "freak out" if his initial plan is not able to be achieved as desired. Pt continues to appear anxious and despite making strides with being able to verbalize his desires, he reports ongoing hesitancy to make a formal decision. Pt denied feeling "zoned out" today and feels he is tolerating the 30mg dose of citalopram. He denies thinking of suicide today, but then mumbled a statement under his breath. When asked to repeat himself, the patient states "because I can't afford to be in the hospital again." Pt denied other needs and was encouraged to continue efforts to work on coping strategies and ways to manage frustration. Physical Exam Psychiatric Orientation: alert, oriented x 3 and cooperative Apperance: appropriately dressed, appropriately groomed and appeared stated age Eye Contact: good eye contact Motor Behavior: steady gait and station and no abnormal motor movements Speech: normal rate/rhythm/volume of speech Affect: + anxious affect and mood congruent with affect Mood: + anxious mood Thought Process: goal directed thought process Thought Content: reality based without delusions; no hopelessness Suicidal Thoughts: denies suicidal thoughts but did state the reason for this was "because I can't afford to be in the hospital again." Homicidal Thoughts: denies homicidal thoughts Hallucinations: no auditory hallucinations and no visual hallucinations Cognition: attention grossly intact and language grossly intact Estimated Intelligence: consistent with education level Insight: + fair insight Judgement: + fair judgement Vital Signs (Past 24 Hours) Last Vital Signs Temp 36.4 C L 02/18/20 06:41 Pulse 82 02/18/20 06:41 Resp 16 02/18/20 06:41 BP 118/75 02/18/20 06:41 Pulse Ox 99 02/13/20 20:56 Results & Data ([facility]) Current Inpatient Medications Current Inpatient Medications: Current Inpatient Medications Acetaminophen (Acetaminophen 325 Mg Tab) 650 mg PO Q4H PRN PRN Reason: Headache or Minor Fever Stop: 03/14/20 20:48 Al Hydrox/Mg Hydrox/Simethicone (Aluminum/Magnesium Susp 30 Ml Udc) 30 ml PO Q4H PRN PRN Reason: GI Upset Stop: 03/14/20 20:48 Bismuth Subsalicylate (Bismuth Subsalicylate Liqd 236 Ml) 15 ml PO PRN PRN PRN Reason: Loose Stool Stop: 03/14/20 20:48 Citalopram Hydrobromide (Citalopram 20 Mg Tab) 30 mg PO QAM ARELY Stop: 03/18/20 08:59 Last Admin: 02/18/20 08:48 Dose: 30 mg Documented by: Fluticasone Propionate (Fluticasone Propionate Na Spr 16 Gm Btl) 1 sprays DORITA BID ARELY Stop: 03/17/20 20:59 Last Admin: 02/18/20 08:49 Dose: 1 sprays Documented by: Hydroxyzine HCl (Hydroxyzine Hcl 25 Mg Tab) 50 mg PO HSZ PRN PRN Reason: Insomnia Stop: 03/14/20 20:48 Hydroxyzine HCl (Hydroxyzine Hcl 25 Mg Tab) 25 mg PO Q4H PRN PRN Reason: Anxiety Stop: 03/14/20 20:48 Last Admin: 02/16/20 03:51 Dose: 25 mg Documented by: Magnesium Hydroxide (Magnesium Hydroxide Susp 30 Ml Udc) 30 ml PO DAILY PRN PRN Reason: Constipation Stop: 03/14/20 20:48 Sodium Chloride (Sodium Chloride 0.65% Na Soln 45 Ml ([place])) 1 - 2 sprays NA PRN PRN PRN Reason: Nasal Dryness/Congestion Stop: 03/14/20 20:48 Last Admin: 02/15/20 10:10 Dose: 1 sprays Documented by: Mental Health & Subst Abuse Tx Psychiatrist Name of Psychiatrist: Dr. Garcia [facility] Psychiatrist's Date of Appointment with Psychiatrist: 02/24/20 Time of Appointment with Psychiatrist: 11:00am Psychiatric Appointment Comment: [address], [place] Therapist Name of Therapist: [facility] Therapist's Date of Therapist Appointment: 02/22/20 Time of Therapist Appointment: 6:00pm Therapy Appointment Comment: [address], [place] Post Discharge Appointments Primary Care Physician Name Of Family Doctor: [facility] (1) Depression Depression Type: unspecified Qualified Code(s): F32.9 - Major depressive disorder, single episode, unspecified
--- NOTE | 2020-02-19 08:26 | Psychiatric Progress Note ---
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 He is angry about the barriers he has encountered, feels that things are unfair, and in that context is hopeless and suicidal. Patient's behavior continues to be consistent with narci ssistic personality disorder, and we will encourage patient to focus on development of healthy and effective coping skills to deal with frustration. Pt agreed to a family meeting with his mother, who lives in [place]. Mother was supportive, but patient continued to display difficulty tolerating frustration. Inpatient treatment is medically necessary due to the severity of symptoms and risk for suicide if discharged. (1) Suicidal ideation: 02/13 - Continue inpatient treatment on locked unit, suicide checks for safety, encourage group attendance and participation. -Family meeting w/ parents in [place], and coordination with school/[employer]. -Patient is now stating he cannot go home until the travel restrictions are lifted, which could be months or longer. This does not appear to be based in reality, and he will need coordination with his outpatient supports to clarify his options moving forward. 02/14 - Pt does not report active SI, but after a significant period of hesitancy, the patient states he feels "broken" and continues to feel that "life is overrated" 02/15 - 02/16 - Denied SI, but reports feeling overwhelmed with conversations about school 02/17 - Pt offers somewhat cryptic denial of SI. He denies active thoughts, but also states "because I can't afford to be in the hospital again." 02/18 - Pt denies SI (2) Depression: 02/13 - Resume citalopram 20mg daily, as previously effective and well tolerated. Discussed with him that given multiple episodes of depression and history of multiple suicide attempts, that guidelines are for continuous antidepressant treatment, and that greater consideration should be given in the future prior to stopping his medications once symptoms have remitted. - Reviewed diagnoses and treatment recommendations, including antidepressant medication and therapy. Care coordinated with Dr. Kirby and will also coordinate with therapist at [facility]. If he remains in [place], he will require ongoing outpatient treatment. 02/14 - continue citalopram at 20mg - patient reports nausea today, unsure if related to medication or anxiety. Can continue titration as tolerated and recommend ongoing conversations to encourage medication compliance even after symptoms improve - Pt reports ongoing depressed mood and difficulty processing events leading to admission - prefers at this time to focus more on distraction than on directly discussing stressors - Family meeting with mother scheduled for tomorrow - Will need to reschedule aftercare appointments 02/15 - Will titrate citalopram to 30mg tomorrow morning - continued depression and increased situational anxiety related to conversations about whether or not to w ithdraw from school - Family meeting with mother today, pt reportedly had several outbursts - mother was supportive overall - Will need to encourage patient to actually process this decision, as his p reference is to avoid difficulty decisions. He was more open to discussing this today, which is positive. 02/16 - Continue as above - pt reports feeling "foggy" and states his "brain was slowed" today, but agreeable with continuing 30mg dose - Pt continues to avoid processing through decision regarding school - Aftercare appointments scheduled 02/17 - Continue citalopram 30mg daily. - Pt does seem to have put more effort into not only figuring out his options related to continuing in his program, but also into coping strategies to assist with disappointment and frustration. - Aftercare appointments in place. 02/18 - Continue current treatment plan - pt does report desire for discharge tomorrow to allow him to attend classes on Friday. - Pt reports improvement in mood - though frustrated today as he has been asked to refrain from drawing some provocative illustrations - Aftercare appointments are in place (3) Narcissistic personality disorder: 02/13 - Outpatient diagnosis, will get therapy records. On exam today, sense of entitlement is noted, as well as lack of empathy. -Difficulty managing frustration, will focus on distress tolerance and healthy coping skills here. 02/14 - Ongoing observations as stated above. Evidence to support this diagnosis today includes: acute frustration related to mother securing another plane ticket, claiming he was frustrated with her for doing this as he now has no intention of returning home. - Hopefully we can discuss this communication concern and ways to assist with low frustration-tolerance during family meeting scheduled with mother for tomorrow. (4) Nasal congestion due to prolonged use of decongestants: 02/15 - Pt reports concern related to nasal congestion - use of oxymetazoline has been limited to BID, but patient admits he has been taking the medication multiple times a day for "a long time" - We discussed that this is likely rebound congestion from prolonged oxymetazoline use. Educated on this process and that discontinuation of oxymetazoline is recommended but will likely be an uncomfortable process - Pt agreed to discontinuation of oxymetazoline, will order fluticasone 1 spray each nostril BID for residual symptoms. Risk Factors Assessment Male: Yes : No Do You Have Access To A Gun?: No Health Problems: No Mental Health Diagnoses: Yes Substance Use Disorders: No Previous Attempt: Yes Family History of Suicide: No Previous Psychiatric Hospitalization: Yes Hopelessness: Yes Smoker: No Protective Factors Assessment Hindu Beliefs: No : No Responsible for Young Children: No Employed: No Stable Relationships: Yes Supportive Family: Yes Good Rapport with Provider: Yes Interval History Identifying Information LULU TRAN is a 19-year-old [employer] student from [place] who has a history of depression and was admitted on 02/13/20 20:49 on a 201 voluntary commitment for depression and suicidality. Chief Complaint "Um...everything is alright. Um, I guess I was a little upset this morning." Review of Systems Notes Constitutional: denied Cardiovascular: denied Respiratory: denied Gastrointestinal: denied Neurological: denied Psychiatric: denies symptoms other than stated above Total of at least 10 systems reviewed, pertinent positives as above and in HPI. Sleep Information Total Hours of Sleep: 6 Sleep Comments: pt on q-15 minute checks Meal Information Percent Meal Consumed - Breakfast: 100 Percent Meal Consumed - Lunch: 100 Percent Meal Consumed - Dinner: 100 Subjective Subjective Patient was seen & assessed and interval progress reviewed with nursing and social work. Staff report the patient has been cooperative and engaging in group programming. Pt has been drawing some provocative illustrations of animals holding weapons (consistent with last admission), and has be requested to keep these illustrations out of common areas as these themes are technically contraband. Pt did apparently become upset when hearing about this, but was provided with a folder to store his drawings and is complying appropriately with requests. Pt was seen today to assess progress since admission. Pt states he is doing well and denies any concerns with his mood. We discussed patient's thoughts regarding discharge timeline. Pt states he would like to return to classes on Friday, therefore needing a Friday discharge. Pt felt this would be appropriate as he is denying SI and feeling improved overall. Pt denied other needs or concerns at this time. He reports plan to continue with school and attempt to enroll in classes for next semester. Physical Exam Psychiatric Orientation: alert, oriented x 3 and cooperative Apperance: appropriately dressed, appropriately groomed and appeared stated age Eye Contact: good eye contact Motor Behavior: steady gait and station and no abnormal motor movements Speech: normal rate/rhythm/volume of speech Affect: + anxious affect Mood: no depressed mood Thought Process: goal directed thought process and clear/coherent thought process Thought Content: reality based without delusions; no hopelessness Suicidal Thoughts: denies suicidal thoughts and denies suicidal intent Homicidal Thoughts: denies homicidal thoughts Hallucinations: no auditory hallucinations and no visual hallucinations Cognition: attention grossly intact and language grossly intact Estimated Intelligence: consistent with education level Insight: + fair insight Judgement: + fair judgement Vital Signs (Past 24 Hours) Last Vital Signs Temp 36.4 C L 02/19/20 06:38 Pulse 88 02/19/20 06:38 Resp 17 02/19/20 06:38 BP 121/67 02/19/20 06:38 Pulse Ox 99 02/13/20 20:56 Results & Data ([facility]) Current Inpatient Medications Current Inpatient Medications: Current Inpatient Medications Acetaminophen (Acetaminophen 325 Mg Tab) 650 mg PO Q4H PRN PRN Reason: Headache or Minor Fever Stop: 03/14/20 20:48 Al Hydrox/Mg Hydrox/Simethicone (Aluminum/Magnesium Susp 30 Ml Udc) 30 ml PO Q4H PRN PRN Reason: GI Upset Stop: 03/14/20 20:48 Bismuth Subsalicylate (Bismuth Subsalicylate Liqd 236 Ml) 15 ml PO PRN PRN PRN Reason: Loose Stool Stop: 03/14/20 20:48 Citalopram Hydrobromide (Citalopram 20 Mg Tab) 30 mg PO QAM ARELY Stop: 03/18/20 08:59 Last Admin: 02/18/20 08:48 Dose: 30 mg Documented by: Fluticasone Propionate (Fluticasone Propionate Na Spr 16 Gm Btl) 1 sprays DORITA BID ARELY Stop: 03/17/20 20:59 Last Admin: 02/18/20 21:56 Dose: 1 sprays Documented by: Hydroxyzine HCl (Hydroxyzine Hcl 25 Mg Tab) 50 mg PO HSZ PRN PRN Reason: Insomnia Stop: 03/14/20 20:48 Hydroxyzine HCl (Hydroxyzine Hcl 25 Mg Tab) 25 mg PO Q4H PRN PRN Reason: Anxiety Stop: 03/14/20 20:48 Last Admin: 02/16/20 03:51 Dose: 25 mg Documented by: Magnesium Hydroxide (Magnesium Hydroxide Susp 30 Ml Udc) 30 ml PO DAILY PRN PRN Reason: Constipation Stop: 03/14/20 20:48 Sodium Chloride (Sodium Chloride 0.65% Na Soln 45 Ml ([place])) 1 - 2 sprays NA PRN PRN PRN Reason: Nasal Dryness/Congestion Stop: 03/14/20 20:48 Last Admin: 02/15/20 10:10 Dose: 1 sprays Documented by: Mental Health & Subst Abuse Tx Psychiatrist [facility] Date of Appointment with Psychiatrist: 02/24/20 Time of Appointment with Psychiatrist: 11:00am Psychiatric Appointment Comment: [address] [place], [place] Therapist Name of Therapist: [facility] Therapist's Date of Therapist Appointment: 02/22/20 Time of Therapist Appointment: 6:00pm Therapy Appointment Comment: [address] [place], [place] Post Discharge Appointments Primary Care Physician Name Of Family Doctor: [facility] (1) Depression Depression Type: unspecified Qualified Code(s): F32.9 - Major depressive disorder, single episode, unspecified
[2020-02-19] MEDS: CITALOPRAM 20 MG TAB PO SCH (08:41)
[2020-02-19] MEDS: FLUTICASONE PROPIONATE NA SPR 16 GM BTL NAE SCH ×2 (08:43→21:50)
[2020-02-20 06:28] VITALS: TEMP 97.5
[2020-02-20] MEDS: CITALOPRAM 20 MG TAB PO SCH (08:28)
[2020-02-20] MEDS: FLUTICASONE PROPIONATE NA SPR 16 GM BTL NAE SCH (08:29)
--- NOTE | 2020-02-20 09:32 | Discharge Summary ---
Date of Service February 20, 2020 History of Present Illness Patient presented to the ER 02/13/2020 reporting worsening depression and suicidal thoughts to jump off a building, which occurred in the context of attempting to return home to [place], but not having the appropriate paperwork to board his plane. He reported multiple previous suicide attempts, and was hospitalized here in 07/25/2017. He also reported academic stressors. He endorsed depressed mood, tearfulness, helplessness, hopelessness, self-eval uation, difficulty functioning, poor motivation, concentration, and appetite. He reported severe anxiety on most days with sweating, trembling, and had his first panic attack the day of presentation. He reported banging on the karimi with his fist. He is in treatment at the [facility] psychological clinic, but stopped his medications because he was feeling better. On my assessment, he states he is here because he was "feeling very stressed at school, I'm homesick, missing my parents," so made a plan to go home to [place], but didn't have the results of his COVID test so couldn't board the plane. He reports depressive symptoms since the end of November, with decreased interest and ability to enjoy things, poor focus, decreased energy. He reports "school stress," feeling overwhelmed by his classes, and had tried to pick classes that would be easier, but they were harder than he'd expected, and he dropped one class. He says he is "doing decent" in his classes (12 credits) this semester. He was planning to finish his classes remotely from [place]. He also reports stress due to strained relationship with his roommates, as he "freaked out" out one night, was sad and angry, and even though they made up, he "didn't feel any better." After he was unable to get on the plane in [place] (yesterday), he took a bus back to [place], and "came here immediately, because I was having serious thoughts of trying to hurt myself." SI started after he couldn't board the plan, as he felt overwhelmed with "the effort to try to go home," feeling angry and guilty, and thought about jumping off the roof of the [facility] building he was staying in in [place]. He was planning to see a psychiatrist in [place] and "get back on some pills," and was thinking about staying with his parents and finishing school remotely. He tried to reschedule his flight, but wasn't able to as all the flights in Feb. are full, and the next available was in Mar., but he "can't fly in Mar., because I don't have time," as he'll be "preparing for final exams, and after that taking care of some packages." He says he ordered some things on line for video jia. He says he stopped his antidepressant in the spring or summer, but wants to go back on it as it was helpful. He last had therapy a couple of weeks ago, says it was stopped 2 weeks ago as he was planning to leave the . He reports 6 hours pr less of sleep/night, feels it is not enough. Appetite is decreased and has lost 12 lbs over the past few months. SI continues, "I daija wish I were ." He has been hitting himself when angry/frustrated, "whenever I do somethi ng stupid," which started after he stopped taking medications. Anxiety has increased since he stopped medications, with worry, poor focus, sweating, rumination, poor sleep, and restlessness. He denies symptoms of edmundo, hallucinations, paranoia, OCD, PTSD, and eating disorder. He reports anger at the government/policies which he feels are "unfair," stating that in order to fly to [place] he had to have both a negative Covid test and a antibody test, and even though he did not have the antibody test, he thought that they would "just lift the policy" for him. 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 He says he took the driving test and "I full scored it, and it all means nothing!" Physical Exam Psychiatric Orientation: alert, oriented x 3 and cooperative Apperance: appropriately dressed, appropriately groomed and appeared stated age Eye Contact: + fair eye contact (occasionally avoiding direct eye contact, often looking down at floor) Motor Behavior: no abnormal motor movements and + psychomotor agitation (appearing anxious, small fidgeting movements) Speech: normal rate/rhythm/volume of speech (though mumbles at times, soft vol ume) Affect: + anxious affect (seems to be more anxious when engaged in 1:1 conversations) and mood congruent with affect Mood: no depressed mood and no anxious mood Thought Process: goal directed thought process and clear/coherent thought process Thought Content: reality based without delusions; no hopelessness and no worthlessness Suicidal Thoughts: denies suicidal thoughts, denies suicidal plan and denies suicidal intent Homicidal Thoughts: denies homicidal thoughts Hallucinations: no auditory hallucinations and no visual hallucinations Cognition: attention grossly intact Estimated Intelligence: consistent with education level Insight: + fair insight Judgement: + fair judgement Vital Signs (Past 24 Hours) Last Vital Signs Temp 36.4 C L 02/20/20 06:25 Pulse 76 02/20/20 06:25 Resp 17 02/20/20 06:25 BP 126/80 02/20/20 06:25 Pulse Ox 99 02/13/20 20:56 Principal Diagnosis - Depression, unspecified - Narcissistic personality disorder (per outpatient records) Psychiatric Data 19-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 Pt was admitted voluntarily for inpatient psychiatric treatment on 02/13/2020 with worsening depression for the past several months, and suicidal thoughts with a plan to jump off a building that occurred when his plan to fly home to [place] to be with his parents and complete the semester remotely was frustrated by government regulations related to the pandemic. He admitted to being angry about the barriers he had encountered, and felt that things are unfair, and in that context was hopeless and suicidal. Throughout the patient's hospitalization, his behavior continued to be consistent with narcissistic personality disorder, and patient was encouraged to focus on development of healthy and effective coping skills to deal with frustration. Pt agreed to a family meeting with his mother, who lives in [place]. Mother was supportive, and patient reports feeling more confident expressing specific needs to his supports. He was restarted on citalopram, as it had been previously effective and was titrated to a dose of 30mg daily. Pt demonstrated significant difficulty with decision-making steps, as he was encouraged to address his academic stressors and develop a plan to de al appropriately. He indicated plan to complete this semester and still attempt to enroll for classes next semester. Pt was referred to Student Care and Advocacy for continued support with this. Pt denied SI shortly after he was admitted and maintained this for the remainder of his stay. Pt completed a safety plan and was able to verbalize several additional coping skills. Based on review of patient's case and their current presentation, risk of harm to self or others is no longer perceived to be acute. Management of symptoms on an outpatient basis seems the most appropriate and least restrictive setting. Pt seems appropriate for discharge with recommendation for consistent follow-up with outpatient psychiatric prescriber and therapist. Pt verbalized understanding of discharge plan reviewed and is agreeable with plan to be discharged to his apartment today. Day of Discharge Assessment Patient's case was reviewed and discussed during morning report. Staff report the patient has continued to engage in group and recreational programming. He has denied additional concerns and had expressed desire for discharge today in order to attend an 8am class tomorrow morning. Pt was seen today to assess readiness for discharge. Dr. Amin, supervising psychiatrist for weekend rounding, participated in meeting via Zoom session with patient's permission. Pt reported feeling ready for discharge. He did admit to some mild anxiety related to returning to classes, but felt this would be manageable for him. He was able to identify increased confidence in more clearly communicating his needs to supports and was able to process and finalize decisions related to attempting to complete this academic semester. Pt denied SI for the past several days of his admission and was able to verbalize several xavier points to a written safety plan he developed. He tolerated citalopram 30mg and is agreeable with continuing the medication on discharge. Pt reported feeling as though he met his treatment goals and denied other needs or concerns prior to discharge. He reports plan to take an Uber to his apartment from the hospital. ROS: Constitutional: denied Cardiovascular: denied Respiratory: denied Gastrointestinal: denied Neurological: denied Psychiatric: denies symptoms other than stated above Total of at least 10 systems reviewed, pertinent positives as above and in HPI. Transition of Care Transition Of Care Record: was reviewed with the patient Advance Directives Advance Directives Information Provided: Yes Advance Directives: No Mental Health Advance Directive: No Advance Directives on File: No Living Will: No Power of Public Relations Account Executive: No Advance Directives Reason:: Declines as Mental Health Visit. Risk Factors Assessment Presenting risk factors reviewed on discharge. Precipitating stressors mitigated by: admission for inpatient psychiatric observation and treatment, appropriate adjustments to medications to target symptoms, attendance of therapeutic treatment groups, development of healthy and effective coping strategies, involvement of outpatient supports, completion of a safety plan, and education on diagnoses. Pt has demonstrated improvement in condition with regard to improvement in mood, resolution of SI, involvement of mother in a family meeting, and confirmation of outpatient psychiatric appointments. At this time, patient is requesting discharge and is no longer considered to be at acute risk of harm to himself or others. Pt will be discharged with recommendation for ongoing outpatient psychiatric treatment. Pt is at increased risk of harm to self or others when compared to the general population and there are several risk factors which are not likely to be mitigated in an inpatient treatment setting. He has demonstrated a rather low frustration-tolerance and will be encouraged to continue to work with out outpatient providers on development of healthy and reliable coping strategies. Male: Yes : No Do You Have Access To A Gun?: No Health Problems: No Mental Health Diagnoses: Yes Substance Use Disorders: No Previous Attempt: Yes Family History of Suicide: No Previous Psychiatric Hospitalization: Yes Hopelessness: Yes Smoker: No Protective Factors Assessment Rastafari Beliefs: No : No Responsible for Young Children: No Employed: No Stable Relationships: Yes Supportive Family: Yes Good Rapport with Provider: Yes Tobacco Cessation at Discharge Tobacco Cessation Medication Prescribed at Discharge: Not Applicable/Non-Smoker Total Time Total Time Spent: Greater Than 30 Minutes Total Time Includes: Examination of the patient, Discharge Planning, Medication Reconciliation and Communication with other providers Discharge Data Lab Results 02/13/20 02/13/20 02/13/20 16:47 16:47 17:14 WBC 7.54 RBC 5.61 Hgb 16.1 Hct 46.7 MCV 83.2 MCH 28.7 MCHC 34.5 RDW Std Deviation 37.3 RDW Coeff of Remedios 12.5 Plt Count 263 MPV 10.1 Immature Gran % (Auto) 0.3 Neut % (Auto) 55.5 Lymph % (Auto) 29.4 Alexander % (Auto) 10.2 Eos % (Auto) 4.2 Baso % (Auto) 0.4 Neut # (Auto) 4.18 Lymph # (Auto) 2.22 Alexander # (Auto) 0.77 H Eos # (Auto) 0.32 Baso # (Auto) 0.03 Immature Gran # (Auto) 0.02 Sodium Potassium Chloride Carbon Dioxide Anion Gap BUN Creatinine Est Cr Clr Drug Dosing Est GFR ( Amer) Est GFR (Non-Af Amer) BUN/Creatinine Ratio Glucose Calcium Total Bilirubin AST ALT Alkaline Phosphatase Total Protein Albumin Globulin Albumin/Globulin Ratio TSH Urine Color Dark Yellow Urine Appearance Clear Urine pH 5.5 Ur Specific Parkin 1.037 H Urine Protein Trace H Urine Glucose (UA) Negative Urine Ketones Negative Urine Blood Negative Urine Nitrite Negative Urine Bilirubin Negative Urine Urobilinogen Negative Ur Leukocyte Esterase Negative Urine WBC (Auto) 1-5 Urine RBC (Auto) 0-4 U Hyaline Cast (Auto) 1-5 U Epithel Cells (Auto) 5-10 H Urine Bacteria (Auto) Negative Salicylates Urine Opiates Screen Neg Ur Methadone, Qual Neg Acetaminophen Urine Barbiturates Neg Ur Phencyclidine (PCP) Neg U Amphetamin/Meth Scrn Neg MDMA (Ecstasy) Screen Neg U Benzodiazepines Scrn Neg Ur Cocaine Metabolite Neg U Marijuana (THC) Screen Neg Ethyl Alcohol mg/dL COVID-19 Eval Order SARS-CoV-2, RNA, NAAT 02/13/20 02/13/20 02/13/20 17:14 17:14 17:14 WBC RBC Hgb Hct MCV MCH MCHC RDW Std Deviation RDW Coeff of Remedios Plt Count MPV Immature Gran % (Auto) Neut % (Auto) Lymph % (Auto) Alexander % (Auto) Eos % (Auto) Baso % (Auto) Neut # (Auto) Lymph # (Auto) Alexander # (Auto) Eos # (Auto) Baso # (Auto) Immature Gran # (Auto) Sodium 140 Potassium 3.7 Chloride 107 Carbon Dioxide 27 Anion Gap 6.0 BUN 18 Creatinine 1.11 Est Cr Clr Drug Dosing 101.8 Est GFR ( Amer) 109.4 Est GFR (Non-Af Amer) 94.4 BUN/Creatinine Ratio 15.9 Glucose 86 Calcium 9.1 Total Bilirubin 0.9 AST 15 ALT 24 Alkaline Phosphatase 81 Total Protein 8.0 Albumin 4.4 Globulin 3.6 Albumin/Globulin Ratio 1.2 TSH 3.770 Urine Color Urine Appearance Urine pH Ur Specific Parkin Urine Protein Urine Glucose (UA) Urine Ketones Urine Blood Urine Nitrite Urine Bilirubin Urine Urobilinogen Ur Leukocyte Esterase Urine WBC (Auto) Urine RBC (Auto) U Hyaline Cast (Auto) U Epithel Cells (Auto) Urine Bacteria (Auto) Salicylates < 1.7 L Urine Opiates Screen Ur Methadone, Qual Acetaminophen < 2 L Urine Barbiturates Ur Phencyclidine (PCP) U Amphetamin/Meth Scrn MDMA (Ecstasy) Screen U Benzodiazepines Scrn Ur Cocaine Metabolite U Marijuana (THC) Screen Ethyl Alcohol mg/dL < 3.0 COVID-19 Eval Order SARS-CoV-2, RNA, NAAT 02/13/20 02/13/20 19:20 19:20 WBC RBC Hgb Hct MCV MCH MCHC RDW Std Deviation RDW Coeff of Remedios Plt Count MPV Immature Gran % (Auto) Neut % (Auto) Lymph % (Auto) Alexander % (Auto) Eos % (Auto) Baso % (Auto) Neut # (Auto) Lymph # (Auto) Alexander # (Auto) Eos # (Auto) Baso # (Auto) Immature Gran # (Auto) Sodium Potassium Chloride Carbon Dioxide Anion Gap BUN Creatinine Est Cr Clr Drug Dosing Est GFR ( Amer) Est GFR (Non-Af Amer) BUN/Creatinine Ratio Glucose Calcium Total Bilirubin AST ALT Alkaline Phosphatase Total Protein Albumin Globulin Albumin/Globulin Ratio TSH Urine Color Urine Appearance Urine pH Ur Specific Parkin Urine Protein Urine Glucose (UA) Urine Ketones Urine Blood Urine Nitrite Urine Bilirubin Urine Urobilinogen Ur Leukocyte Esterase Urine WBC (Auto) Urine RBC (Auto) U Hyaline Cast (Auto) U Epithel Cells (Auto) Urine Bacteria (Auto) Salicylates Urine Opiates Screen Ur Methadone, Qual Acetaminophen Urine Barbiturates Ur Phencyclidine (PCP) U Amphetamin/Meth Scrn MDMA (Ecstasy) Screen U Benzodiazepines Scrn Ur Cocaine Metabolite U Marijuana (THC) Screen Ethyl Alcohol mg/dL COVID-19 Eval Order [facility] SARS-CoV-2, RNA, NAAT NEGATIVE Hospital Course (1) Suicidal ideation: 02/13 - Continue inpatient treatment on locked unit, suicide checks for safety, encourage group attendance and participation. -Family meeting w/ parents in [place], and coordination with school/[employer] [facility]. -Patient is now stating he cannot go home until the travel restrictions are lifted, which could be months or longer. This does not appear to be based in reality, and he will need coordination with his outpatient supports to clarify his options moving forward. 02/14 - Pt does not report active SI, but after a significant period of hesitancy, the patient states he feels "broken" and continues to feel that "life is overrated" 02/15 - 02/16 - Denied SI, but reports feeling overwhelmed with conversations about school 02/17 - Pt offers somewhat cryptic denial of SI. He denies active thoughts, but also states "because I can't afford to be in the hospital again." 02/18 - Pt denies SI (2) Depression: 02/13 - Resume citalopram 20mg daily, as previously effective and well tolerated. Discussed with him that given multiple episodes of depression and history of multiple suicide attempts, that guidelines are for continuous antidepressant treatment, and that greater consideration should be given in the future prior to stopping his medications once symptoms have remitted. - Reviewed diagnoses and treatment recommendations, including antidepressant medication and therapy. Care coordinated with Dr. Kirby and will also coordinate with therapist at [facility]. If he remains in [place], he will require ongoing outpatient treatment. 02/14 - continue citalopram at 20mg - patient reports nausea today, unsure if related to medication or anxiety. Can continue titration as tolerated and recommend ongoing conversations to encourage medication compliance even after symptoms improve - Pt reports ongoing depressed mood and difficulty processing events leading to admission - prefers at this time to focus more on distraction than on directly discussing stressors - Family meeting with mother scheduled for tomorrow - Will need to reschedule aftercare appointments 02/15 - Will titrate citalopram to 30mg tomorrow morning - continued depression and increased situational anxiety related to conversations about whether or not to withdraw from school - Family meeting with mother today, pt reportedly had several outbursts - mother was supportive overall - Will need to encourage patient to actually process this decision, as his preference is to avoid difficulty decisions. He was more open to discussing this today, which is positive. 02/16 - Continue as above - pt reports feeling "foggy" and states his "brain was slowe d" today, but agreeable with continuing 30mg dose - Pt continues to avoid processing through decision regarding school - Aftercare appointments scheduled 02/17 - Continue citalopram 30mg daily. - Pt does seem to have put more effort into not only figuring out his options related to continuing in his program, but also into coping strategies to assist with disappointment and frustration. - Aftercare appointments in place. 02/18 - Continue current treatment plan - pt does report desire for discharge tomorrow to allow him to attend classes on Friday. - Pt reports improvement in mood - though frustrated today as he has been asked to refrain from drawing some provocative illustrations - Aftercare appointments are in place (3) Narcissistic personality disorder: 02/13 - Outpatient diagnosis, will get therapy records. On exam today, sense of entitlement is noted, as well as lack of empathy. -Difficulty managing frustration, will focus on distress tolerance and healthy coping skills here. 02/14 - Ongoing observations as stated above. Evidence to support this diagnosis today includes: acute frustration related to mother securing another plane ticket, claiming he was frustrated with her for doing this as he now has no intention of returning home. - Hopefully we can discuss this communication concern and ways to assist with low frustration-tolerance during family meeting scheduled with mother for tomorrow. (4) Nasal congestion due to prolonged use of decongestants: 02/15 - Pt reports concern related to nasal congestion - use of oxymetazoline has been limited to BID, but patient admits he has been taking the medication multiple times a day for "a long time" - We discussed that this is likely rebound congestion from prolonged oxymetazoline use. Educated on this process and that discontinuation of oxymetazoline is recommended but will likely be an uncomfortable process - Pt agreed to discontinuation of oxymetazoline, will order fluticasone 1 spray each nostril BID for residual symptoms. Mental Health & Subst Abuse Tx Psychiatrist Name of Psychiatrist: Dr. JacobsJaved [facility] Psychiatrist's Date of Appointment with Psychiatrist: 02/24/20 Time of Appointment with Psychiatrist: 11:00am Psychiatric Appointment Comment: [address] [place] [address], [place], [place] Therapist Name of Therapist: Mary [facility] Therapist's Date of Therapist Appointment: 02/22/20 Time of Therapist Appointment: 6:00pm Therapy Appointment Comment: Carolynn Duenas [facility], [place] Post Discharge Appointments Primary Care Physician Name Of Family Doctor: [facility] Tobacco Cessation Medication Prescribed at Discharge: Not Applicable/Non-Smoker Discharge Plan Discharge Items Patient Disposition: Home - Self-Care Reason For Visit: DEPRESSION NOS Discharge Diagnosis: Depression Condition on Discharge: Fair Activity: Per Instructions section Non-emergency contact: Psychiatrist and Therapist Call non-emergency contact if: you have any medication questions and your symptoms worsen Follow-up/Referrals: [place] [Primary Care Provider] - Diet: Regular Addtl Attending Provider Instructions: SPECIAL CARE INSTRUCTIONS: 1. Follow through with your scheduled aftercare appointments. If unable to keep an appointment, please call to reschedule. 2. Take your medication only as prescribed. Medication should not be changed or stopped without the approval of your doctor. In the event of worsening symptoms or concerns about side effects, contact your doctor immediately. 3. Utilize new healthy coping skills, anger management skills, and stress management skills learned during your hospitalization. Journal feelings and process them with a support person. Identify stressors or situations that may result in relapse, deterioration or inappropriate behaviors and develop a plan to deal with those issues. 4. If your coping skills are ineffective and you are in crisis, contact your outpatient providers for direction. If unable to reach your providers, please call the [facility] CRISIS LINE AT , go to the [facility] walk-in center at [address], [place], or go to the closest Emergency Room. 5. Avoid alcohol and un-prescribed drugs. 6. You have been provided with the Mental Health Advance Directives Pamphlet for your review. AFTERCARE APPOINTMENTS: * Please call your insurance company prior to your scheduled appointment to confirm your aftercare providers are covered. Take your insurance information to your appointments. WHO TO CALL AND WHEN: Medical Emergencies: For questions or emergencies related to your hospital stay, please contact the Inpatient Behavioral Health Unit at [phone]. A fine arts instructor is on-call 28/10 for the Behavioral Health Unit for emergencies At any time you feel your situation is an emergency, you may also call 911 immediately. Pending Studies at Discharge: No Stand-Alone Forms: [email or web address], Smoking Cessation Medications and DC Order Prescriptions: New citalopram 20 mg Tablet 30 mg PO QAM Qty: 45 RF: 0 No Action No Known Home Medications RF: 0 Discharge Orders: Discharge Order (Routine); Ordered 02/20/20 Ordered By: Raquel Amin Admission Data Admit Date/Time: 02/13/20 20:49 Attending Provider: Raquel Amin Admit Provider: Raquel Amin Primary Care Provider: [facility] Other Interventions: Discharge Summary Assessment (RN) Last Done: 02/20/20 10:53 PSY Interdisciplinary Discharge Planning Last Done: 02/20/20 11:36 Coding Level of Care Code 64962 D/C day mgmt > 30 min Diagnoses Suicidal ideation R45.851 Depression F32.9 Depression Type: unspecified Narcissistic personality disorder F60.81 Nasal congestion due to prolonged use of decongestants J31.0; T48.5X5A
[2020-02-20 09:40] VITALS: BP 120/86; PULSE 84
== END 2020-02-20 12:40 | disposition home or self-care (01) | DRG 881 ==
LOC: ED 16:28 → 3S 20:49

== ENCOUNTER 2020-11-04 14:06 | Inpatient (IN) ==
[2020-11-04] MEDS ORDERED: SODIUM CHLORIDE 0.9% 1000ML 500 ML IV ONE (14:20)
[2020-11-04] MEDS ORDERED: PROMETHAZINE 6.25 MG/50.25 ML BAG IV STA (14:20)
--- NOTE | 2020-11-04 14:24 | Emergency Department Note ---
Impression & Plan Alcohol use, Suicidal ideation ED Provider Note NAME: LULU TRAN AGE: 20 SEX: M : 2000 ARRIVES VIA: Walk-In INFORMANT: [Patient][friend] ED PROVIDER(S): [Nathaniel Gibson MD] CHIEF COMPLAINT: Alcohol intoxication HISTORY OF PRESENT ILLNESS: The patient is a 20-year-old male who began drinking twisted teas about an hour and a half ago. He does not typically drink alcohol but had a lot to drink all at once. He was found in the hallway, he was stumbling and seemed quite intoxicated. He was shaking. No loss of consciousness. No vomiting, no head trauma. The patient's friends were concerned and brought him to the hospital for evaluation. He has been in baseline health of late. Of note, the patient has not been taking his prescribed Celexa. No further history obtainable given his alcohol use and mental state. REVIEW OF SYSTEMS: Unobtainable given the alcohol use and mental state. PMHx/PSHx: See Below SOCIAL HISTORY: See Below. PHYSICAL EXAM: GENERAL: Patient is in mild distress. HEENT: No acute trauma, normocephalic atraumatic, mucous membranes moist, no nasal congestion, no scleral icterus. Pupils equal and reactive to light. NECK: No stridor, no adenopathy, no meningismus, trachea is midline. LUNGS: No respiratory distress, he is hyperventilating. A few scattered wheezes are heard. Breath sounds are equal. HEART: Tachycardic, regular rhythm, no murmurs. ABDOMEN: Soft, nontender, bowel sounds positive, no hernias, no peritonitis. EXTREMITIES: No cyanosis or edema, full range of motion of all the joints without pain or difficulty, no signs for acute trauma. NEUROLOGIC: Moving all extremities, awake, seems somewhat confused and intoxicated with alcohol. SKIN: No rash, no jaundice, no diaphoresis. DIFFERENTIAL DIAGNOSIS: Alcohol abuse, drug abuse, dehydration, electrolyte imbalance, anemia, renal or liver failure, anxiety and depression, seizure, dehydration, among others. EMERGENCY DEPARTMENT COURSE/PROCEDURES: MEDICAL DECISION MAKING: The patient presented with a presumed alcohol overdose. He had a roommate at bedside. There was no leukocytosis or concerning anemia. No significant electrolyte abnormality or kidney failure. No concerning liver enzyme elevation. The TSH was slightly high however, the T4 was normal. Aspirin, Tylenol levels were undetectable. Urine tox was negative. Alcohol level returned elevated but low at 41. Covid testing returned negative. The patient initially presented as a potential alcohol overdose. His alcohol level was quite low. On further discussion, it appears he has stopped his Celexa. He was feeling depressed and anxious and at 1 point, told our psychiatry field case manager that he would kill himself with a gun. The patient is now a voluntary psychiatric admission. A referral has been made to [facility]'s psychiatric floor. The patient is currently resting comfortably. He has been cooperative. During his ED stay, he was given IV saline for hydration, he received a small dose of IV Phenergan to prevent nausea/vomiting. The case is being assumed Dr. Segovia at the change of shift, please see his note. Past Med/Surg History Medical History Depression Narcissistic personality disorder Suicidal ideation Social History Smoking Status: Never smoker Preferred Language: Kinyarwanda Communication Ability: Effective Master Carpenter Required: No Beliefs That Will Affect Care: None Feels Safe at Home: Yes Assistive Devices: Glasses Allergies Allergies Allergy/AdvReac Type Severity Reaction Status Date / Time No Known Allergies Allergy Verified 11/04/20 14:57 Home Meds Home Medications Medication Instructions Recorded Confirmed citalopram 40 mg tablet 40 mg PO QAM 11/04/20 11/04/20 Results & Data (ED) Vital Signs Vital Signs - 24 hr 11/04/20 14:08 11/04/20 14:52 11/04/20 15:32 Temperature 36.6 C Temperature Source Temporal Artery Scan Pulse Rate 114 H Pulse Rate [Left Finger] 88 86 Pulse Rhythm [Left Finger] Regular Pulse Strength [Left Finger] Normal Respiratory Rate 18 18 18 Respiratory Effort / Characteristics Non-Labored Respiratory Depth Normal Respiratory Pattern Regular Blood Pressure 122/55 L Blood Pressure [Left Arm] 127/58 L 128/65 Blood Pressure Mean 77 Blood Pressure Mean [Left Arm] 81 86 Blood Pressure Position [Left Arm] Lying Lying Pulse Oximetry 99 99 99 Oxygen Delivery Method Room Air Room Air Sepsis Recent Fever Within 48 Hours No Sepsis New/Unexplained Change in Mental Status No Sepsis Action Taken by Nursing No Action Required 11/04/20 15:55 11/04/20 16:43 Temperature Temperature Source Pulse Rate Pulse Rate [Left Finger] 105 H 85 Pulse Rhythm [Left Finger] Pulse Strength [Left Finger] Respiratory Rate 18 18 Respiratory Effort / Characteristics Respiratory Depth Normal Respiratory Pattern Blood Pressure Blood Pressure [Left Arm] 122/67 124/79 Blood Pressure Mean Blood Pressure Mean [Left Arm] 85 94 Blood Pressure Position [Left Arm] Pulse Oximetry 99 98 Oxygen Delivery Method Room Air Room Air Sepsis Recent Fever Within 48 Hours Sepsis New/Unexplained Change in Mental Status Sepsis Action Taken by Longterm Medications Current Medication List: was personally reviewed by me Laboratory Data Attestation: I reviewed the patient's lab results. Result diagrams: 11/04/20 14:23 11/04/20 14:23 Lab Results 11/04/20 11/04/20 11/04/20 Range/Units 14:23 14:23 14:23 WBC 8.95 (4.8-10.8) K/uL RBC 5.92 (4.7-6.1) M/uL Hgb 17.1 (14.0-18.0) g/dL Hct 49.0 (42-52) % MCV 82.8 (80-100) fL MCH 28.9 (25-34) pg MCHC 34.9 (32-36) g/dL RDW Std Deviation 36.6 (36.4-46.3) fL RDW Coeff of Remedios 12.3 (11.5-14.5) % Plt Count 292 (130-400) K/uL MPV 9.9 (7.4-10.4) fL Sodium 139 (136-145) mmol/L Potassium 4.1 (3.5-5.1) mmol/L Chloride 109 H (98-107) mmol/L Carbon Dioxide 24 (21-32) mmol/L Anion Gap 6.0 (3-11) BUN 15 (7-18) mg/dl Creatinine 1.07 (0.6-1.4) mg/dl Est Cr Clr Drug Dosing 119.7 ml/min Est GFR ( Amer) 113.6 ml/min Est GFR (Non-Af Amer) 98.0 ml/min BUN/Creatinine Ratio 13.7 (10-20) Glucose 94 (70-99) mg/dl Calcium 9.5 (8.5-10.1) mg/dl Total Bilirubin 0.5 (0.2-1) mg/dl AST 24 (15-37) U/L ALT 49 (12-78) U/L Alkaline Phosphatase 81 (45-117) U/L Total Protein 8.0 (6.4-8.2) gm/dl Albumin 4.3 (3.4-5.0) gm/dl Globulin 3.7 (2.5-4.0) gm/dl Albumin/Globulin Ratio 1.2 (0.9-2) TSH 6.460 H (0.300-4.500) uIu/ml Free T4 1.07 (0.8-1.6) ng/dl Salicylates (2.8-20) mg/dl Urine Opiates Screen (Neg) Ur Methadone, Qual (Neg) Acetaminophen (10-30) ug/ml Urine Barbiturates (Neg) Ur Phencyclidine (PCP) (Neg) U Amphetamin/Meth Scrn (Neg) MDMA (Ecstasy) Screen (Neg) U Benzodiazepines Scrn (Neg) Ur Cocaine Metabolite (Neg) U Marijuana (THC) Screen (Neg) Ethyl Alcohol mg/dL 41.0 H (0-3) mg/dl COVID-19 Eval Order SARS-CoV-2, RNA, NAAT (NEGATIVE) 11/04/20 11/04/20 11/04/20 Range/Units 14:25 14:40 16:47 WBC (4.8-10.8) K/uL RBC (4.7-6.1) M/uL Hgb (14.0-18.0) g/dL Hct (42-52) % MCV (80-100) fL MCH (25-34) pg MCHC (32-36) g/dL RDW Std Deviation (36.4-46.3) fL RDW Coeff of Remedios (11.5-14.5) % Plt Count (130-400) K/uL MPV (7.4-10.4) fL Sodium (136-145) mmol/L Potassium (3.5-5.1) mmol/L Chloride (98-107) mmol/L Carbon Dioxide (21-32) mmol/L Anion Gap (3-11) BUN (7-18) mg/dl Creatinine (0.6-1.4) mg/dl Est Cr Clr Drug Dosing ml/min Est GFR ( Amer) ml/min Est GFR (Non-Af Amer) ml/min BUN/Creatinine Ratio (10-20) Glucose (70-99) mg/dl Calcium (8.5-10.1) mg/dl Total Bilirubin (0.2-1) mg/dl AST (15-37) U/L ALT (12-78) U/L Alkaline Phosphatase (45-117) U/L Total Protein (6.4-8.2) gm/dl Albumin (3.4-5.0) gm/dl Globulin (2.5-4.0) gm/dl Albumin/Globulin Ratio (0.9-2) TSH (0.300-4.500) uIu/ml Free T4 (0.8-1.6) ng/dl Salicylates < 1.7 L (2.8-20) mg/dl Urine Opiates Screen Neg (Neg) Ur Methadone, Qual Neg (Neg) Acetaminophen < 2 L (10-30) ug/ml Urine Barbiturates Neg (Neg) Ur Phencyclidine (PCP) Neg (Neg) U Amphetamin/Meth Scrn Neg (Neg) MDMA (Ecstasy) Screen Neg (Neg) U Benzodiazepines Scrn Neg (Neg) Ur Cocaine Metabolite Neg (Neg) U Marijuana (THC) Screen Neg (Neg) Ethyl Alcohol mg/dL (0-3) mg/dl COVID-19 Eval [facility] SARS-CoV-2, RNA, NAAT (NEGATIVE) 11/04/20 Range/Units 16:47 WBC (4.8-10.8) K/uL RBC (4.7-6.1) M/uL Hgb (14.0-18.0) g/dL Hct (42-52) % MCV (80-100) fL MCH (25-34) pg MCHC (32-36) g/dL RDW Std Deviation (36.4-46.3) fL RDW Coeff of Remedios (11.5-14.5) % Plt Count (130-400) K/uL MPV (7.4-10.4) fL Sodium (136-145) mmol/L Potassium (3.5-5.1) mmol/L Chloride (98-107) mmol/L Carbon Dioxide (21-32) mmol/L Anion Gap (3-11) BUN (7-18) mg/dl Creatinine (0.6-1.4) mg/dl Est Cr Clr Drug Dosing ml/min Est GFR ( Amer) ml/min Est GFR (Non-Af Amer) ml/min BUN/Creatinine Ratio (10-20) Glucose (70-99) mg/dl Calcium (8.5-10.1) mg/dl Total Bilirubin (0.2-1) mg/dl AST (15-37) U/L ALT (12-78) U/L Alkaline Phosphatase (45-117) U/L Total Protein (6.4-8.2) gm/dl Albumin (3.4-5.0) gm/dl Globulin (2.5-4.0) gm/dl Albumin/Globulin Ratio (0.9-2) TSH (0.300-4.500) uIu/ml Free T4 (0.8-1.6) ng/dl Salicylates (2.8-20) mg/dl Urine Opiates Screen (Neg) Ur Methadone, Qual (Neg) Acetaminophen (10-30) ug/ml Urine Barbiturates (Neg) Ur Phencyclidine (PCP) (Neg) U Amphetamin/Meth Scrn (Neg) MDMA (Ecstasy) Screen (Neg) U Benzodiazepines Scrn (Neg) Ur Cocaine Metabolite (Neg) U Marijuana (THC) Screen (Neg) Ethyl Alcohol mg/dL (0-3) mg/dl COVID-19 Eval Order SARS-CoV-2, RNA, NAAT NEGATIVE (NEGATIVE) Administered Medications Discontinued Medications Promethazine HCl (Phenergan) 6.25 mg in 50.25 mls @ 201 mls/hr IV NOW STA Stop: 11/04/20 14:34 Last Infusion: 11/04/20 15:04 Dose: 0 mls/hr Documented by: [id number] Admin: 11/04/20 14:43 Dose: 201 mls/hr Documented by: [id number] Sodium Chloride (Nss 1000ml) 500 mls @ 999 mls/hr IV .Q31M ONE Stop: 11/04/20 14:50 Last Infusion: 11/04/20 15:51 Dose: 0 mls/hr Documented by: [id number] Admin: 11/04/20 14:51 Dose: 999 mls/hr Documented by: [id number] Discharge Plan Visit Data Chief Complaint: Mental Health Evaluation Stated Complaint: OVERDOSE ON ALCOHOL ED Provider: Farhat Segovia Discharge Problem: Alcohol use, Suicidal ideation Patient Disposition: Still a Patient Condition: Good Forms Stand Alone Forms: [facility], Suicide Prevention Resources Prescriptions Prescriptions: No Action citalopram 40 mg tablet 40 mg PO QAM RF: 0 Referrals Referrals: [facility] [Primary Care Provider] -
[2020-11-04 14:48] LABS: Hemoglobin 17.1 g/dL (14.0-18.0); Mean Corpuscular Hemoglobin 28.9 pg (25-34); Mean Corpuscular Hgb Conc 34.9 g/dL (32-36); Mean Corpuscular Volume 82.8 fL (80-100); Mean Platelet Volume 9.9 fL (7.4-10.4); Platelet Count 292 K/uL (130-400); RDW Coefficient of Variation 12.3 % (11.5-14.5); RDW Standard Deviation 36.6 fL (36.4-46.3); Red Blood Count 5.92 M/uL (4.7-6.1); White Blood Count 8.95 K/uL (4.8-10.8)
[2020-11-04 15:02] LABS: Amphetamines+Metham, Urine Neg (Neg); Barbiturates, Urine Neg (Neg); Benzodiazepine, Urine Neg (Neg); Cocaine, Urine Neg (Neg); MDMA (Ecstacy), Urine Neg (Neg); Methadone, Urine Neg (Neg); Opiate, Urine Neg (Neg); Phencyclidine, Urine Neg (Neg)
[2020-11-04 15:25] LABS: Albumin Globulin Ratio 1.2 (0.9-2); Albumin Level 4.3 gm/dl (3.4-5.0); BUN Creatinine Ratio 13.7 (10-20); Bilirubin,Total 0.5 mg/dl (0.2-1); Calcium 9.5 mg/dl (8.5-10.1); Creatinine Clr Calc Pharmacy 119.7 ml/min; Est GFR (African American) 113.6 ml/min; Globulin 3.7 gm/dl (2.5-4.0); Potassium 4.1 mmol/L (3.5-5.1)
[2020-11-04 17:05] LABS: Acetaminophen < 2 ug/ml (10-30); Salicylate < 1.7 mg/dl (2.8-20)
[2020-11-04 17:40] LABS: Thyroid Stimulating Hormone 6.46 uIu/ml (0.300-4.500)
[2020-11-04 18:00] LABS: T4 Free Thyroxine 1.07 ng/dl (0.8-1.6)
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
[2020-11-04] MEDS ORDERED: ACETAMINOPHEN 325 MG TAB PO PRN (18:30)
[2020-11-04] MEDS ORDERED: SODIUM CHLORIDE 0.65% NA SOLN 45 ML (OCEAN) PRN (18:30)
[2020-11-04] MEDS ORDERED: ALUMINUM/MAGNESIUM SUSP 30 ML UDC PO PRN (18:30)
[2020-11-04] MEDS ORDERED: hydrOXYzine HCl 25 MG TAB PO PRN ×2 (18:30)
[2020-11-04] MEDS ORDERED: BISMUTH SUBSALICYLATE LIQD 236 ML PO PRN (18:30)
[2020-11-04] MEDS ORDERED: MAGNESIUM HYDROXIDE SUSP 30 ML UDC PO PRN (18:30)
[2020-11-05] MEDS ORDERED: hydrOXYzine HCl 25 MG TAB PO PRN (09:28)
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
[2020-11-05] MEDS ORDERED: CITALOPRAM 20 MG TAB PO SCH (22:00)
--- NOTE | 2020-11-06 07:52 | Psychiatric Progress Note ---
Date of Service November 06, 2020 Impression / Recommendations Impression 20 yo male with a history of recurrent SI and sporadic med compliance presents after actively searching for roommate's gun while experiencing intoxication. JACKIE was only .4 so likely some degree of alcohol dehydrogenase def? Patient considered high risk given limited social supports, 3 prior inpatient hospitalizations and at least 1 suicidal gesture. Carries a diagnosis of narcissistic personality disorder which may be more cultural reaction to narcissistic injury. (1) Depression: 11/06/20--titrate Celexa to previous dose of 40 mg, needs meeting with roommate around securing weapon. 11/05/20--The patient was admitted to the [facility] ([facility]) on q15 min checks (behavioral with suicide precautions) for safety. The patient will participate in group, recreational, and milieu therapies and will be offered additional individual and family sessions as clinically appropriate. Risks/benefits/alternatives reviewed re: antidepressants for the treatment of depression and/or anxiety. Discussion included but was not limited to FDA warnings re: suicidality in adolescents and young adults. The patient agreed to restart Celexa at 20 mg and retitrate as tolerate to previously effective dose of 40 mg. He agrees to abstain from Etoh. Inventory Assets Strengths: far into his degree, hx of seeking help when suicidal Needs: confirm outpatient providers, take medication consistently Risk Factors Assessment Male: Yes : No Do You Have Access To A Gun?: Yes (roommates, need to confirm if secure ) Health Problems: No Mental Health Diagnoses: Yes Substance Use Disorders: No Previous Attempt: Yes Previous Psychiatric Hospitalization: Yes Protective Factors Assessment Christian Beliefs: No : No Responsible for Young Children: No Employed: No Supportive Family: No Interval History Identifying Information 20 yo male admit 11/04/20 on a 201 commitment for SI while intoxicated. Chief Complaint "I'm fine I guess, it was all the alcohol, I didn't understand need to talk to my roommate though". Review of Systems Sleep Information Total Hours of Sleep: 6.25 Meal Information Percent Meal Consumed - Breakfast: 100 Percent Meal Consumed - Lunch: 100 Percent Meal Consumed - Dinner: 100 Subjective Subjective Patient was seen & assessed and interval progress reviewed with treatment team. Patient has been cooperative, restarted Celexa without incident. Need to confirm aftercare. Patient seems to have little understanding of need for safety planning as "I drink maybe once a year". 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 and he wasn't really able to state how he would deal with disappointment if fails a second time, just "that wouldn't happ en" Physical Exam Psychiatric Orientation: alert and oriented x 3 Apperance: appropriately dressed and appropriately groomed Eye Contact: good eye contact Motor Behavior: no abnormal motor movements Speech: normal rate/rhythm/volume of speech Affect: euthymic affect Mood: + depressed mood Thought Process: goal directed thought process Thought Content: reality based without delusions Suicidal Thoughts: denies suicidal thoughts Homicidal Thoughts: denies homicidal thoughts Hallucinations: no auditory hallucinations and no visual hallucinations Cognition: attention grossly intact and language grossly intact Estimated Intelligence: consistent with education level Insight: + limited insight Judgement: + limited judgement Vital Signs (Past 24 Hours) Last Vital Signs Temp 36.4 C L 11/06/20 06:38 Pulse 82 11/06/20 06:38 Resp 16 11/06/20 06:38 BP 132/68 11/06/20 06:38 Pulse Ox 98 11/04/20 16:43 Results & Data ([facility]) Current Inpatient Medications Current Inpatient Medications: Current Inpatient Medications Acetaminophen (Acetaminophen 325 Mg Tab) 650 mg PO Q4H PRN PRN Reason: Headache or Minor Fever Stop: 12/04/20 18:29 Al Hydrox/Mg Hydrox/Simethicone (Aluminum/Magnesium Susp 30 Ml Udc) 30 ml PO Q4H PRN PRN Reason: GI Upset Stop: 12/04/20 18:29 Bismuth Subsalicylate (Bismuth Subsalicylate Liqd 236 Ml) 15 ml PO PRN PRN PRN Reason: Loose Stool Stop: 12/04/20 18:29 Citalopram Hydrobromide (Citalopram 20 Mg Tab) 20 mg PO HS ARELY Stop: 12/05/20 21:59 Last Admin: 11/05/20 21:26 Dose: 20 mg Documented by: Hydroxyzine HCl (Hydroxyzine Hcl 25 Mg Tab) 25 mg PO Q4H PRN PRN Reason: Anxiety Stop: 12/04/20 18:29 Hydroxyzine HCl (Hydroxyzine Hcl 25 Mg Tab) 25 mg PO HSZ PRN PRN Reason: Insomnia Stop: 12/04/20 18:29 Magnesium Hydroxide (Magnesium Hydroxide Susp 30 Ml Udc) 30 ml PO DAILY PRN PRN Reason: Constipation Stop: 12/04/20 18:29 Sodium Chloride (Sodium Chloride 0.65% Na Soln 45 Ml (Emmet)) 1 - 2 sprays NA PRN PRN PRN Reason: Nasal Dryness/Congestion Stop: 12/04/20 18:29 Mental Health & Subst Abuse Tx Therapist Name of Therapist: Hardy Strange Enrollment Nurse Name of Enrollment Nurse: None Post Discharge Appointments Primary Care Physician Name Of Family Doctor: [facility] (1) Depression Depression Type: unspecified Qualified Code(s): F32.9 - Major depressive disorder, single episode, unspecified
[2020-11-06] MEDS ORDERED: CITALOPRAM 40 MG TAB PO SCH (22:00)
--- NOTE | 2020-11-07 10:50 | Discharge Summary ---
Date of Service November 07, 2020 History of Present Illness per admission H&P: Patient last admitted to our unit 02/15/20-02/20/20 for SI, at that time stressor was the pandemic, inability to return home to [place] and microaggressions related to "flu". Patient reports he has been doing well since but tends to miss appointments with psych clinic. He states that in the past month he has been sluggish, particularly in the afternoon and will nap for 2 hrs and sleep through appointments. He ran out of Celexa 40 mg about a week ago (though surescripts documents last fill at [facility] in August). 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 He was "sort of angry" but instead of acting out drank 2 twisted teas. He states this is the most he has ever drank and that in the past sips of alcohol have caused him to feel sick. He states he started asking his roommate for the roommates 22 and that the gun is usually kept locked. His roommate became concerned and patient doesn't recall coming to the ED other than giving his urine sample. He denies confusion or language barrier but thoughts are difficult to follow at times and he laughs inappropriately about the incident. He denies symptoms of edmundo or any garcía like he has experienced in the past, "unless everything is not real". He otherwise denies vegetative symptoms of depression and states that his classes are going well. He reported being a senior in 2019 but currently states has 1.5 semesters left. He states that his day has been pretty unstructured due to pandemic. Talks with family in [place] "occasionally". Physical Exam Psychiatric See admission H&P and DOD summary. Vital Signs (Past 24 Hours) Last Vital Signs Temp 36.5 C 11/07/20 06:46 Pulse 90 11/07/20 06:46 Resp 18 11/07/20 06:46 BP 132/83 11/07/20 06:46 Pulse Ox 98 11/04/20 16:43 Principal Diagnosis unspecified depressive disorder Psychiatric Data See daily stay summary. In short, safety was maintained and the patient was cooperative with care. Medication changes included restart of previously effective dose of Celexa and they tolerated this well. A brief phone session was held with roommate to review safety plan and secure weapon prior to discharge. He declined family session. He is aware that we recommend resuming therapy for support and coping but is refusing. He has missed appointments with psych clinic and is considered a closed case. He will be provided list of providers and would also have option of telehealth with [facility] if he decides to follow this recommendation. He has complained of some fatigue interfering with compliance with appointments and has a slightly elevated TSH. A follow-up appointment at [facility] is recommended for repeat thyroid testing. Day of Discharge Assessment Today the patient voices readiness for discharge. They note improvement in mood and have consistently denied thoughts to harm self or others. Thoughts remain organized and they are improved from admission. There is no evidence of psychosis. They agree to take mediations as prescribed and keep follow-up appointments. 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 They are stable for discharge to outpatient level of care. Transition of Care Transition Of Care Record: was reviewed with the patient Advance Directives Advance Directives Information Provided: Yes Advance Directives: No Mental Health Advance Directive: No Advance Directives on File: No Living Will: No Power of Dancing Instructor: No Advance Directives Reason:: Declines as Mental Health Visit. Risk Factors Assessment Male: Yes : No Do You Have Access To A Gun?: No (roommates, confirmed secure ) Health Problems: No Mental Health Diagnoses: Yes Substance Use Disorders: No Previous Attempt: Yes Previous Psychiatric Hospitalization: Yes Protective Factors Assessment Anabaptism Beliefs: No : No Responsible for Young Children: No Employed: No Supportive Family: No Total Time Total Time Spent: Greater Than 30 Minutes Total Time Includes: Examination of the patient, Discharge Planning and Medication Reconciliation Discharge Data Lab Results 11/04/20 11/04/20 11/04/20 14:23 14:23 14:23 WBC 8.95 RBC 5.92 Hgb 17.1 Hct 49.0 MCV 82.8 MCH 28.9 MCHC 34.9 RDW Std Deviation 36.6 RDW Coeff of Remedios 12.3 Plt Count 292 MPV 9.9 Sodium 139 Potassium 4.1 Chloride 109 H Carbon Dioxide 24 Anion Gap 6.0 BUN 15 Creatinine 1.07 Est Cr Clr Drug Dosing 119.7 Est GFR ( Amer) 113.6 Est GFR (Non-Af Amer) 98.0 BUN/Creatinine Ratio 13.7 Glucose 94 Calcium 9.5 Total Bilirubin 0.5 AST 24 ALT 49 Alkaline Phosphatase 81 Total Protein 8.0 Albumin 4.3 Globulin 3.7 Albumin/Globulin Ratio 1.2 TSH 6.460 H Free T4 1.07 Salicylates Urine Opiates Screen Ur Methadone, Qual Acetaminophen Urine Barbiturates Ur Phencyclidine (PCP) U Amphetamin/Meth Scrn MDMA (Ecstasy) Screen U Benzodiazepines Scrn Ur Cocaine Metabolite U Marijuana (THC) Screen Ethyl Alcohol mg/dL 41.0 H COVID-19 Eval Order SARS-CoV-2, RNA, NAAT 11/04/20 11/04/20 11/04/20 14:25 14:40 16:47 WBC RBC Hgb Hct MCV MCH MCHC RDW Std Deviation RDW Coeff of Remedios Plt Count MPV Sodium Potassium Chloride Carbon Dioxide Anion Gap BUN Creatinine Est Cr Clr Drug Dosing Est GFR ( Amer) Est GFR (Non-Af Amer) BUN/Creatinine Ratio Glucose Calcium Total Bilirubin AST ALT Alkaline Phosphatase Total Protein Albumin Globulin Albumin/Globulin Ratio TSH Free T4 Salicylates < 1.7 L Urine Opiates Screen Neg Ur Methadone, Qual Neg Acetaminophen < 2 L Urine Barbiturates Neg Ur Phencyclidine (PCP) Neg U Amphetamin/Meth Scrn Neg MDMA (Ecstasy) Screen Neg U Benzodiazepines Scrn Neg Ur Cocaine Metabolite Neg U Marijuana (THC) Screen Neg Ethyl Alcohol mg/dL COVID-19 Eval Order Covid19 IDNow atMMDC SARS-CoV-2, RNA, NAAT 11/04/20 16:47 WBC RBC Hgb Hct MCV MCH MCHC RDW Std Deviation RDW Coeff of Remedios Plt Count MPV Sodium Potassium Chloride Carbon Dioxide Anion Gap BUN Creatinine Est Cr Clr Drug Dosing Est GFR ( Amer) Est GFR (Non-Af Amer) BUN/Creatinine Ratio Glucose Calcium Total Bilirubin AST ALT Alkaline Phosphatase Total Protein Albumin Globulin Albumin/Globulin Ratio TSH Free T4 Salicylates Urine Opiates Screen Ur Methadone, Qual Acetaminophen Urine Barbiturates Ur Phencyclidine (PCP) U Amphetamin/Meth Scrn MDMA (Ecstasy) Screen U Benzodiazepines Scrn Ur Cocaine Metabolite U Marijuana (THC) Screen Ethyl Alcohol mg/dL COVID-19 Eval Order SARS-CoV-2, RNA, NAAT NEGATIVE Hospital Course (1) Depression: 11/06/20--titrate Celexa to previous dose of 40 mg, needs meeting with roommate around securing weapon. 11/05/20--The patient was admitted to the [facility] ([facility] mental [facility]) on q15 min checks (behavioral with suicide precautions) for safety. The patient will participate in group, recreational, and milieu therapies and will be offered additional individual and family sessions as clinically appropriate. Risks/benefits/alternatives reviewed re: antidepressants for the treatment of depression and/or anxiety. Discussion included but was not limited to FDA warnings re: suicidality in adolescents and young adults. The patient agreed to restart Celexa at 20 mg and retitrate as tolerate to previously effective dose of 40 mg. He agrees to abstain from Etoh. Mental Health & Subst Abuse Tx Psychiatrist Name of Psychiatrist: [facility] Psychiatrist's Date of Appointment with Psychiatrist: 11/09/20 Time of Appointment with Psychiatrist: 1045 Psychiatric Appointment Comment: [facility]per will call you Therapist Name of Therapist: [facility] Therapist's Six Horse Hitch Driver Name of Six Horse Hitch Driver: None Post Discharge Appointments Primary Care Physician Name Of Family Doctor: [facility] Discharge Plan Discharge Items Patient Disposition: Home - Self-Care Reason For Visit: UNSPECIFIED DEPRESSIVE DISORDER Discharge Diagnosis: same Condition on Discharge: Good Activity: Resume your previous activity Non-emergency contact: Primary Care Provider and Psychiatrist Call non-emergency contact if: you have any medication questions and your symptoms worsen Follow-up/Referrals: [facility] [Primary Care Provider] - Diet: Regular Addtl Attending Provider Instructions: SPECIAL CARE INSTRUCTIONS: 1. Follow through with your scheduled aftercare appointments. If unable to keep an appointment, please call to reschedule. 2. Take your medication only as prescribed. Medication should not be changed or stopped without the approval of your doctor. In the event of worsening symptoms or concerns about side effects, contact your doctor immediately. 3. Utilize new healthy coping skills, anger management skills, and stress management skills learned during your hospitalization. Journal feelings and process them with a support person. Identify stressors or situations that may result in relapse, deterioration or inappropriate behaviors and develop a plan to deal with those issues. 4. If your coping skills are ineffective and you are in crisis, contact your outpatient providers for direction. If unable to reach your providers, please call the [facility] CRISIS LINE AT , go to the [facility] walk-in center at [address], [address], [place], or go to the closest Emergency Room. 5. Avoid alcohol and un-prescribed drugs. 6. You have been provided with the Mental Health Advance Directives Pamphlet for your review. AFTERCARE APPOINTMENTS: * Please call your insurance company prior to your scheduled appointment to confirm your aftercare providers are covered. Take your insurance information to your appointments. WHO TO CALL AND WHEN: Medical Emergencies: For questions or emergencies related to your hospital stay, please contact the Inpatient Behavioral Health Unit at [phone]. A chicken hanger is on-call 28/10 for the Behavioral Health Unit for emergencies At any time you feel your situation is an emergency, you may also call 911 immediately. Pending Studies at Discharge: No Stand-Alone Forms: My [facility] Viss, Smoking Cessation Medications and DC Order Prescriptions: Changed citalopram 40 mg tablet 40 mg PO DAILY 30 Days Qty: 30 RF: 0 Discharge Orders: Discharge Order (Routine); Ordered 11/07/20 Ordered By: Jacque Cohen Admission Data Admit Date/Time: 11/04/20 18:30 Attending Provider: Jacque Cohen Admit Provider: Jacque Cohen Primary Care Provider: Rus[facility] Other Interventions: PSY Interdisciplinary Discharge Planning Last Done: 11/07/20 10:44 Coding Level of Care Code 40870 D/C day mgmt > 30 min Diagnoses Depression F32.9 Depression Type: unspecified
[2020-11-07] MEDS ORDERED: diphenhydrAMINE Capsule 25 MG CAP PO ONE (11:07)
== END 2020-11-07 18:00 | disposition home or self-care (01) | DRG 881 ==
LOC: ED 14:06 → 3S 18:30